=== PATIENT | female | born 1960 | race Two or more races ===

== ENCOUNTER 2016-10-29 23:40 | Emergency (ER) | payer SELFPAY ==
[2016-10-30] MEDS ORDERED: ASPIRIN 81 MG TABLET, CHEWABLE PO ONE (00:13)
[2016-10-30 00:46] LABS: ABSOLUTE BASOPHILS # (AUTO) 0.1 10^3/uL (0.0-0.2); ABSOLUTE EOSINOPHILS # (AUTO) 0.2 10^3/uL (0.0-0.6); ABSOLUTE MONOCYTES (AUTO) 0.6 10^3/uL (0.1-1.4); ABSOLUTE NEUT (AUTO) 5.4 10^3/uL (1.7-8.2); BASOPHILS % (AUTO) 0.6 % (0-2); EOSINOPHILS % (AUTO) 2.5 % (0-6); HEMATOCRIT 38.9 % (36.0-47.0); HGB HCT DIFFERENCE 0.1; LYMPHOCYTES % (AUTO) 31.7 % (13-45); MEAN CORPUSCULAR HEMOGLOBIN 29.4 pg (27.0-33.4); MEAN CORPUSCULAR HGB CONC 33.4 g/dL (32.0-36.0); MEAN CORPUSCULAR VOLUME 88 fl (80-97); MONOCYTES % (AUTO) 6.8 % (3-13); RED BLOOD COUNT 4.41 10^6/uL (3.72-5.28); RED CELL DISTRIBUTION WIDTH 12.3 % (11.5-14.0); SEGMENTED NEUTROPHILS % (AUTO) 58.4 % (42-78); WHITE BLOOD COUNT 9.3 10^3/uL (4.0-10.5)
[2016-10-30 00:57] LABS: ALANINE AMINOTRANSFERASE 22 U/L (9-52); ALBUMIN 3.8 g/dL (3.5-5.0); ALKALINE PHOSPHATASE 63 U/L (38-126); ANION GAP 8 (5-19); ASPARTATE AMINO TRANSFERASE 16 U/L (14-36); BILIRUBIN,DIRECT 0.1 mg/dL (0.0-0.4); BILIRUBIN,TOTAL 0.3 mg/dL (0.2-1.3); BLOOD UREA NITROGEN 16 mg/dL (7-20); CALCIUM 9.2 mg/dL (8.4-10.2); CARBON DIOXIDE 28 mmol/L (22-30); CHLORIDE 105 mmol/L (98-107); CREATINE KINASE 93 U/L (30-135); CREATININE RESULT 0.71 mg/dL (0.52-1.25); GLUCOSE 83 mg/dL (75-110); POTASSIUM 3.7 mmol/L (3.6-5.0); SODIUM 141.3 mmol/L (137-145); TOTAL PROTEIN 6.6 g/dL (6.3-8.2)
[2016-10-30 01:09] LABS: CREATINE KINASE MB 0.83 ng/mL (<4.55); TROPONIN I < 0.012 ng/mL
[2016-10-30] MEDS ORDERED: IPRATROPIUM/ALBUTEROL 0.5-2.5 MG/3 ML AMPUL NEB ONE ×2 (01:23)
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
--- NOTE | 2016-10-30 01:27 | RADIOLOGY REPORT (SQ) ---
EXAM DESCRIPTION: CHEST SINGLE VIEW COMPLETED DATE/TIME: 10/30/2016 1:15 am REASON FOR STUDY: chest pain COMPARISON: None. EXAM PARAMETERS: NUMBER OF VIEWS: One view. TECHNIQUE: Single frontal radiographic view of the chest acquired. RADIATION DOSE: NA LIMITATIONS: None. FINDINGS: LUNGS AND PLEURA: No consolidation, pneumothorax or pleural effusion. MEDIASTINUM AND HILAR STRUCTURES: No masses. Contour normal. HEART AND VASCULAR STRUCTURES: Heart normal in size. No overt vascular congestion. BONES: No acute findings. HARDWARE: None in the chest. IMPRESSION: No acute radiographic finding in the chest. TECHNICAL DOCUMENTATION: JOB ID: [id number]
[2016-10-30 02:30] VITALS: BP 108/66
--- NOTE | 2016-10-30 12:49 | EKG REPORT ---
SEVERITY:- NORMAL ECG - SINUS RHYTHM : Confirmed by: Cindy Leblanc MD 30-Oct-2016 12:49:22
== END 2016-10-30 02:38 | disposition home or self-care (01) ==
LOC: ER 23:40
DX: R07.1 Chest pain on breathing (principal); R05 Cough; R06.7 Sneezing; R06.02 Shortness of breath; R06.2 Wheezing; Y84.4 Aspiration of fluid as the cause of abnormal reaction of the patient, or of later complication, without mention of misadventure at the time of the procedure
CPT/HCPCS: 93005; 94640 ×2; 99285; 36415; 82553; 82550; 85025; 80053; 84484; 71010; 93010; J7620

== ENCOUNTER 2017-04-05 11:24 | Emergency (ER) | payer BC ==
[2017-04-05 11:32] VITALS: BP 120/73
[2017-04-05] MEDS ORDERED: ONDANSETRON 4 MG TAB.RAPDIS PO ONE (12:05)
[2017-04-05] MEDS ORDERED: KETOROLAC TROMETHAMINE 60 MG/2 ML SDV IM ONE (12:06)
--- NOTE | 2017-04-05 12:07 | ER Document Report ---
ED General - General Mode of Arrival: Ambulatory Information source: Patient TRAVEL OUTSIDE OF THE [place] IN LAST 30 DAYS: Yes - General Chief Complaint: Flu Symptoms Stated Complaint: BODY ACHES, NAUSEA Time Seen by Provider: 04/05/17 11:41 Notes: Patient is a 56 year old female presenting to the emergency department complaining of flu like symptoms. Patient complains of body aches, cough, congestion, sore throat, and nausea. Patient denies any difficulty breathing. (BRONSON ROMAN) - Related Data Allergies/Adverse Reactions: No Known Allergies Allergy (Unverified 10/30/16 00:04) Past Medical History - General Information source: Patient - Social History Smoking Status: Never Smoker Frequency of alcohol use: None Drug Abuse: None Family History: Reviewed & Not Pertinent Patient has suicidal ideation: No Patient has homicidal ideation: No Renal/ Medical History: Denies: Hx Peritoneal Dialysis Review of Systems - Review of Systems Constitutional: See HPI EENT: See HPI, Nose congestion, Throat pain Cardiovascular: No symptoms reported Respiratory: See HPI, Cough Gastrointestinal: See HPI, Nausea Genitourinary: No symptoms reported Female Genitourinary: No symptoms reported Musculoskeletal: No symptoms reported Skin: No symptoms reported Hematologic/Lymphatic: No symptoms reported Neurological/Psychological: No symptoms reported -: Yes All other systems reviewed and negative Physical Exam - General General appearance: Other - appears uncomfortable In distress: None - HEENT Head: Normocephalic, Atraumatic Eyes: Normal Conjunctiva: Normal Nasal: Other - congestion - Respiratory Respiratory status: No respiratory distress Chest status: Nontender Breath sounds: Normal Chest palpation: Normal - Cardiovascular Rhythm: Regular Heart sounds: Normal auscultation - Neurological Neuro grossly intact: Yes Cognition: Normal Orientation: AAOx4 [place] Coma Scale Eye Opening: Spontaneous [place] Coma Scale Verbal: Oriented [place] Coma Scale Motor: Obeys Commands [place] Coma Scale Total: 15 Speech: Normal - Psychological Associated symptoms: Normal affect, Normal mood - Skin Skin Temperature: Hot Skin Moisture: Dry Skin Color: Normal - Vital signs Vitals: Temp Pulse Resp BP Pulse Ox 100.0 F 98 18 120/73 97 04/05/17 11:32 04/05/17 11:32 04/05/17 11:32 04/05/17 11:32 04/05/17 11:32 Course - Re-evaluation Re-evalutation: 04/05/17 Patient with flu symptoms. Positive for influenza A. Patient will be discharged home with nausea medication, Toradol, and Tamiflu. She will be given a work note. Follow-up with PMD as needed. Return if any difficulty breathing, worsening symptoms, or further concerns. Stable for discharge. ( LINDSAY CHATMAN) - Vital Signs Vital signs: Temp Pulse Resp BP Pulse Ox 100.0 F 98 18 120/73 97 04/05/17 11:32 04/05/17 11:32 04/05/17 11:32 04/05/17 11:32 04/05/17 11:32 Discharge - Discharge Clinical Impression: Influenza A Condition: Stable Disposition: HOME, SELF-CARE Instructions: Influenza ([facility]) Prescriptions: Ondansetron [Zofran Odt 4 mg Tablet] 1 tab PO Q6HP PRN #15 tab.rapdis PRN Reason: For Nausea/Vomiting Ketorolac Tromethamine [Toradol 10 mg Tablet] 10 mg PO BIDP PRN #14 tablet PRN Reason: Oseltamivir Phosphate [Tamiflu 75 mg Capsule] 75 mg PO BID #10 capsule Forms: Return to Work Scribe Attestation: 04/05/17 13:28 I personally performed the services described in the documentation, reviewed and edited the documentation which was dictated to the scribe in my presence, and it accurately records my words and actions. (LINDSAY CHATMAN) Scribe Documentation - Scribe Written by Scrjulissae:: Mesfin Barraza, 04/05/2017 12:17 acting as scribe for :: Jalil
[2017-04-05] MEDS ORDERED: ACETAMINOPHEN 325 MG TABLET PO ONE (12:14)
[2017-04-05 12:31] LABS: A TYPE INFLUENZA AG POSITIVE (NEGATIVE); B INFLUENZA AG NEGATIVE (NEGATIVE)
== END 2017-04-05 12:50 | disposition home or self-care (01) ==
LOC: ER 11:24
DX: J11.1 Influenza due to unidentified influenza virus with other respiratory manifestations (principal); R11.0 Nausea; R05 Cough; R09.81 Nasal congestion
CPT/HCPCS: 99283; 96372; 87804; J1885; S0119

== ENCOUNTER 2017-08-02 12:13 | Emergency (ER) | payer BC ==
[2017-08-02] MEDS ORDERED: ASPIRIN 81 MG TABLET, CHEWABLE PO ONE (12:25)
--- NOTE | 2017-08-02 12:31 | ER Document Report ---
ED Cardiac - General Chief Complaint: Chest Pain Stated Complaint: LEFT SIDE PAIN Time Seen by Provider: 08/02/17 12:31 Notes: 56-year-old female patient to the emergency department with a 1-2 day history of chest pain. Hurts when she moves her left arm. Hurts when she takes a deep breath. No shortness of breath. No history of hypertension, diabetes, obesity or other significant risk factors. Does not smoke. Does not drink. Does have a family history of heart disease. Mother had a heart attack at the age of 57 and . Father has history of heart history of coronary artery disease and open heart surgery. Denies any other symptoms at this time. He denies any pain in her legs. No difficulty breathing. No long trips or travel. 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 TRAVEL OUTSIDE OF THE [place] IN LAST 30 DAYS: No - HPI Patient complains to provider of: Chest pain Use of: denies: Alcohol, Amphetamines, Bath salts, Caffeine, Cocaine, Decongestants, Other Chest pain location: Substernal. No: Back Quality of pain: Constant Severity now: Moderate Severity at worst: Moderate Pain level currently: 3 Chest pain precipitating factors: Physical Exertion Cardiac risk factors: + Family history Positive cardiac history: No Associated symptoms: None Exacerbated by: Torso movement Relieved by: Rest - Related Data Allergies/Adverse Reactions: No Known Allergies Allergy (Unverified 10/30/16 00:04) Past Medical History - General Information source: Patient - Social History Smoking Status: Never Smoker Cigarette use (# per day): No Frequency of alcohol use: None Drug Abuse: None Lives with: Family Family History: Reviewed & Not Pertinent - Medical History Medical History: Negative - Past Medical History Cardiac Medical History: Reports: None Renal/ Medical History: Denies: Hx Peritoneal Dialysis Past Surgical History: Reports: Hx Section, Hx Kidney (Renal Surgery) Other: Lithotripsy, ovarian cyst Review of Systems - Review of Systems Constitutional: No symptoms reported EENT: No symptoms reported Cardiovascular: See HPI, Chest pain. denies: Palpitations, Heart racing, Orthopnea, Dyspnea Respiratory: No symptoms reported Gastrointestinal: No symptoms reported Genitourinary: No symptoms reported Female Genitourinary: No symptoms reported Musculoskeletal: No symptoms reported Skin: No symptoms reported Hematologic/Lymphatic: No symptoms reported Neurological/Psychological: No symptoms reported Physical Exam - Vital signs Vitals: Pulse Ox 97 08/02/17 12:25 Interpretation: Normal - General General appearance: Appears well, Alert - HEENT Head: Normocephalic, Atraumatic Eyes: Normal Pupils: PERRL - Respiratory Respiratory status: No respiratory distress Chest status: Nontender Breath sounds: Normal Chest palpation: Normal - Cardiovascular Rhythm: Regular Heart sounds: Normal auscultation Murmur: No Notes: Palpable reproducible chest wall pain on the left side. Exacerbated with movement of the left arm and shoulder. Significantly increased her pain when ranging her shoulder. - Abdominal Inspection: Normal Distension: No distension Bowel sounds: Normal Tenderness: Nontender Organomegaly: No organomegaly - Back Back: Normal, Nontender - Extremities General upper extremity: Normal inspection, Nontender, Normal color, Normal ROM , Normal temperature General lower extremity: Normal inspection, Nontender, Normal color, Normal ROM , Normal temperature, Normal weight bearing. No: Edema, Guanaco's sign - Neurological Neuro grossly intact: Yes Cognition: Normal Orientation: AAOx4 [place] Coma Scale Eye Opening: Spontaneous [place] Coma Scale Verbal: Oriented [place] Coma Scale Motor: Obeys Commands [place] Coma Scale Total: 15 Speech: Normal Motor strength normal: LUE, RUE, LLE, RLE Sensory: Normal - Psychological Associated symptoms: Normal affect, Normal mood - Skin Skin Temperature: Warm Skin Moisture: Dry Skin Color: Normal Course - Re-evaluation Re-evalutation: 08/02/17 12:56 This is a well-appearing 56-year-old female in no acute distress with reproducible chest wall pain which is exacerbated by palpation movement of her left arm and range of motion of her left arm. EKG unremarkable. Will get basic labs chest x-ray, some Toradol and aspirin reassess. 08/02/17 14:23 Pain is almost completely gone at this time. EKG and labs are verbal. Patient did have a stress test within the last couple of years according to her reports. We will give her follow-up information for a outpatient doctor. 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 I think this patient has some chest wall inflammation which is clearly reproducible and exacerbated by movement of her arm and was relieved with Toradol. Although this is not 100% indicative of a noncardiac event it does lend credence to this not being a initial cardiac pathology. Patient has a heart score of 1. Nevertheless, strict instructions will be given to the patient with regards to chest pain and the need for close follow-up. Patient verbalized understanding of these instructions and will be discharged at this time 08/02/17 14:25 Laboratory 08/02/17 08/02/17 08/02/17 12:35 12:35 12:35 WBC 8.0 RBC 4.64 Hgb 13.1 Hct 40.3 MCV 87 MCH 28.3 MCHC 32.6 RDW 13.1 Plt Count 281 Seg Neutrophils % 61.0 Lymphocytes % 26.0 Monocytes % 6.6 Eosinophils % 5.7 Basophils % 0.7 Absolute Neutrophils 4.9 Absolute Lymphocytes 2.1 Absolute Monocytes 0.5 Absolute Eosinophils 0.5 Absolute Basophils 0.1 Sodium 143.8 Potassium 4.6 Chloride 102 Carbon Dioxide 30 Anion Gap 12 BUN 19 Creatinine 0.60 Est GFR ( Amer) > 60 Est GFR (Non-Af Amer) > 60 Glucose 102 Calcium 9.6 Total Bilirubin 0.2 Direct Bilirubin 0.2 Neonat Total Bilirubin Not Reportable Neonat Direct Bilirubin Not Reportable Neonat Indirect Bili Not Reportable AST 19 ALT 26 Alkaline Phosphatase 61 Creatine Kinase 52 CK-MB (CK-2) 0.44 Troponin I < 0.012 Total Protein 6.5 Albumin 3.9 Chest X-Ray 08/02/17 12:25 IMPRESSION: NO ACUTE RADIOGRAPHIC FINDING IN THE CHEST. - Vital Signs Vital signs: Temp Pulse Resp BP Pulse Ox 17 119/88 H 98 08/02/17 13:01 08/02/17 13:01 08/02/17 13:01 - Laboratory Result Diagrams: 08/02/17 12:35 08/02/17 12:35 - EKG Interpretation by [place] EKG shows normal: Sinus rhythm, [place], Intervals, QRS Complexes, ST-T Waves Discharge - Discharge Clinical Impression: Anterior chest wall pain Condition: Good Disposition: HOME, SELF-CARE Instructions: Anti-Inflammatory Medication ([facility]), Chest Pain of Unclear Cause ( [facility]), Chest Wall Pain ([facility]) Prescriptions: Ibuprofen [Motrin 800 mg Tablet] 800 mg PO Q8H PRN 5 Days #15 tab PRN Reason: Referrals: JUDI JONES MD [ACTIVE STAFF] - Follow up in 3-5 days ROMAN DAIGLE MD [ACTIVE STAFF] - Follow up in 1 month
[2017-08-02] MEDS ORDERED: KETOROLAC TROMETHAMINE INJ/PF 30 MG/1 ML SDV IV ONE (12:45)
[2017-08-02 12:52] LABS: ABSOLUTE BASOPHILS # (AUTO) 0.1 10^3/uL (0.0-0.2); ABSOLUTE EOSINOPHILS # (AUTO) 0.5 10^3/uL (0.0-0.6); ABSOLUTE LYMPHOCYTES (AUTO) 2.1 10^3/uL (0.5-4.7); ABSOLUTE MONOCYTES (AUTO) 0.5 10^3/uL (0.1-1.4); ABSOLUTE NEUT (AUTO) 4.9 10^3/uL (1.7-8.2); BASOPHILS % (AUTO) 0.7 % (0-2); EOSINOPHILS % (AUTO) 5.7 % (0-6); HEMATOCRIT 40.3 % (36.0-47.0); HEMOGLOBIN 13.1 g/dL (12.0-15.5); MEAN CORPUSCULAR HEMOGLOBIN 28.3 pg (27.0-33.4); MEAN CORPUSCULAR HGB CONC 32.6 g/dL (32.0-36.0); MEAN CORPUSCULAR VOLUME 87 fl (80-97); MONOCYTES % (AUTO) 6.6 % (3-13); PLATELET COUNT 281 10^3/uL (150-450); RED BLOOD COUNT 4.64 10^6/uL (3.72-5.28); RED CELL DISTRIBUTION WIDTH 13.1 % (11.5-14.0); TOTAL CELLS COUNTED % (AUTO) 100 %
--- NOTE | 2017-08-02 12:53 | EKG REPORT ---
SEVERITY:- BORDERLINE ECG - SINUS RHYTHM BORDERLINE T ABNORMALITIES, ANT-LAT LEADS : Confirmed by: Charlie Blue MD 02-Aug-2017 12:52:49
[2017-08-02 13:13] LABS: ALANINE AMINOTRANSFERASE 26 U/L (9-52); ALBUMIN 3.9 g/dL (3.5-5.0); ALKALINE PHOSPHATASE 61 U/L (38-126); ANION GAP 12 (5-19); ASPARTATE AMINO TRANSFERASE 19 U/L (14-36); BILIRUBIN,DIRECT 0.2 mg/dL (0.0-0.4); BILIRUBIN,TOTAL 0.2 mg/dL (0.2-1.3); BLOOD UREA NITROGEN 19 mg/dL (7-20); CALCIUM 9.6 mg/dL (8.4-10.2); CARBON DIOXIDE 30 mmol/L (22-30); CHLORIDE 102 mmol/L (98-107); CREATINE KINASE 52 U/L (30-135); GLUCOSE 102 mg/dL (75-110); POTASSIUM 4.6 mmol/L (3.6-5.0); SODIUM 143.8 mmol/L (137-145); TOTAL PROTEIN 6.5 g/dL (6.3-8.2)
[2017-08-02 13:21] LABS: CREATINE KINASE MB 0.44 ng/mL (<4.55)
[2017-08-02 13:28] LABS: TROPONIN I < 0.012 ng/mL
--- NOTE | 2017-08-02 13:35 | RADIOLOGY REPORT (SQ) ---
EXAM DESCRIPTION: CHEST SINGLE VIEW COMPLETED DATE/TIME: 08/02/2017 1:13 pm REASON FOR STUDY: cp COMPARISON: None. EXAM PARAMETERS: NUMBER OF VIEWS: One view. TECHNIQUE: Single frontal radiographic view of the chest acquired. RADIATION DOSE: NA LIMITATIONS: None. FINDINGS: LUNGS AND PLEURA: No opacities, masses or pneumothorax. No pleural effusion. MEDIASTINUM AND HILAR STRUCTURES: No masses. Contour normal. HEART AND VASCULAR STRUCTURES: Heart normal in size. Normal vasculature. BONES: No acute findings. HARDWARE: None in the chest. OTHER: No other significant finding. IMPRESSION: NO ACUTE RADIOGRAPHIC FINDING IN THE CHEST. TECHNICAL DOCUMENTATION: JOB ID: [id number] [employer]- All Rights Reserved Reading location - IP/workstation name: [email or web address]
[2017-08-02 14:45] VITALS: BP 102/67
== END 2017-08-02 14:49 | disposition home or self-care (01) ==
LOC: ER 12:13
DX: R07.89 Other chest pain (principal)
CPT/HCPCS: 93005; 99284; 96374; 36415; 82553; 82550; 85025; 80053; 84484; 71045; 93010; J1885

== ENCOUNTER 2017-12-06 17:38 | Emergency (ER) | payer OTHER, BC ==
[2017-12-06] MEDS ORDERED: BACLOFEN 20 MG TABLET PO ONE (18:18)
[2017-12-06] MEDS ORDERED: KETOROLAC TROMETHAMINE 60 MG/2 ML SDV IM ONE (18:18)
--- NOTE | 2017-12-06 18:21 | ER Document Report ---
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 She was lifting boxes around 1230, the pain was progressively increased to the point that by the time she came to the ER intensity of the pain is severe. Nonradiating not associated with any numbness tingling sensation or weakness over the lower extremity. Onset: Sudden Duration: Prior to arrival Severity: Moderate to severe Quality: Sharp Context: Lifting boxes Exacerbating factor and relieving factors: Change of position REVIEW OF SYSTEMS: CONSTITUTIONAL : Denies fever, chills, or sweats. Denies recent illness. EENT: Denies eye, ear, throat, or mouth pain or symptoms. Denies nasal or sinus congestion or discharge. Denies throat, tongue, or mouth swelling or difficulty swallowing. CARDIOVASCULAR: Denies chest pain. Denies palpitations or racing or irregular heart beat. Denies ankle edema. RESPIRATORY: Denies cough, cold, or chest congestion. Denies shortness of breath, difficulty breathing, or wheezing. GASTROINTESTINAL: Denies distention. Denies nausea, vomiting, or diarrhea. Denies blood in vomitus, stools, or per rectum. Denies black, tarry stools. Denies constipation. GENITOURINARY: Denies difficulty urinating, painful urination, burning, frequency, blood in urine, or discharge. FEMALE GENITOURINARY: Denies vaginal bleeding, heavy or abnormal periods, irregular periods. Denies vaginal discharge or odor. MUSCULOSKELETAL: Denies back or neck pain or stiffness. Denies joint pain or swelling. SKIN: Denies rash, lesions or sores. HEMATOLOGIC : Denies easy bruising or bleeding. LYMPHATIC: Denies swollen, enlarged glands. NEUROLOGICAL: Denies confusion or altered mental status. Denies passing out or loss of consciousness. Denies dizziness or lightheadedness. Denies headache. Denies weakness or paralysis or loss of use of either side. Denies problems with gait or speech. Denies sensory loss, numbness, or tingling. Denies seizures. PSYCHIATRIC: Denies anxiety or stress. Denies depression, suicidal ideation, or homicidal ideation. ALL OTHER SYSTEMS REVIEWED AND NEGATIVE. PHYSICAL EXAMINATION: GENERAL: Well-appearing, well-nourished and in no acute distress. HEAD: Atraumatic, normocephalic. EYES: Pupils equal round and reactive to light, extraocular movements intact, conjunctiva are normal. ENT: Nares patent, oropharynx clear without exudates. Moist mucous membranes. NECK: Normal range of motion, supple without lymphadenopathy LUNGS: Breath sounds clear to auscultation bilaterally and equal. No wheezes rales or rhonchi. HEART: Regular rate and rhythm without murmurs ABDOMEN: Soft, nontender, nondistended abdomen. No guarding, no rebound. No masses appreciated. Examination of genitals-deferred Musculoskeletal: Normal range of motion, no pitting or edema. No cyanosis. Examination of the lumbar spine-sharp tenderness noted over L4-L5 region. With paraspinal muscular tenderness. Neurovascular function distally within normal limit. NEUROLOGICAL: Cranial nerves grossly intact. Normal speech, normal gait. Normal sensory, motor exams PSYCH: Normal mood, normal affect. SKIN: Warm, Dry, normal turgor, no rashes or lesions noted. Dictation was performed using [employer] | [employer] voice recognition software TRAVEL OUTSIDE OF THE [place] IN LAST 30 DAYS: No - Related Data Allergies/Adverse Reactions: No Known Allergies Allergy (Unverified 10/30/16 00:04) Past Medical History - Social History Smoking Status: Never Smoker Chew tobacco use (# tins/day): No Frequency of alcohol use: None Drug Abuse: None Lives with: Family Family History: Reviewed & Not Pertinent Patient has suicidal ideation: No Patient has homicidal ideation: No Renal/ Medical History: Denies: Hx Peritoneal Dialysis Past Surgical History: Reports: Hx Section, Hx Kidney (Renal Surgery) Review of Systems - Review of Systems Notes: Dictated Physical Exam - Vital signs Vitals: Temp Pulse Resp BP Pulse Ox 98.0 F 64 16 116/66 99 12/06/17 17:42 12/06/17 17:42 12/06/17 17:42 12/06/17 17:42 12/06/17 17:42 - Notes Notes: Dictated Course - Vital Signs Vital signs: Temp Pulse Resp BP Pulse Ox 98.0 F 64 16 116/66 99 12/06/17 17:42 12/06/17 17:42 12/06/17 17:42 12/06/17 17:42 12/06/17 17:42 - Diagnostic Test Radiology reviewed: Reports reviewed - Lumbar spondylitis Discharge - Discharge Clinical Impression: Lumbar spondylosis Back pain Qualifiers: Back pain location: low back pain Chronicity: acute Back pain laterality: midline Sciatica presence: without sciatica Qualified Code(s): M54.5 - Low back pain Condition: Fair Disposition: HOME, SELF-CARE Instructions: Ice Packs ([facility]), Low Back Pain ([facility]) Prescriptions: Baclofen [Baclofen 20 Mg Tablet] 20 mg PO TID #30 tablet Naproxen [Naprosyn] 500 mg PO BID #30 tablet Referrals: FRANSISCA HERNANDES PA-C [NO LOCAL MD] - Follow up as needed"
--- NOTE | 2017-12-06 18:51 | RADIOLOGY REPORT (SQ) ---
EXAM DESCRIPTION: L SPINE WHOLE COMPLETED DATE/TIME: 12/06/2017 6:35 pm REASON FOR STUDY: Back pain COMPARISON: None. NUMBER OF VIEWS: Five views including obliques. TECHNIQUE: AP, lateral, oblique, and sacral radiographic images acquired of the lumbar spine. LIMITATIONS: None. FINDINGS: MINERALIZATION: Normal. SEGMENTATION: Normal. No transitional anatomy. ALIGNMENT: Normal. VERTEBRAE: Maintained height. No fracture or worrisome bone lesion. DISCS: Multilevel disc space narrowing with osteophytes. POSTERIOR ELEMENTS: Pedicles and facets are intact. No pars defect or posterior arch defects. Facet arthropathy is present. HARDWARE: None in the spine. PARASPINAL SOFT TISSUES: Normal. PELVIS: Intact as visualized. No fractures or worrisome bone lesions. SI joints intact. OTHER: No other significant finding. IMPRESSION: SPONDYLOSIS WITHOUT BONE LESION OR FRACTURE. TECHNICAL DOCUMENTATION: JOB ID: [id number] [place]-72 2010 [employer]- All Rights Reserved Reading location - IP/workstation name: [email or web address]
[2017-12-06 19:39] VITALS: BP 111/66
== END 2017-12-06 19:40 | disposition home or self-care (01) ==
LOC: ER 17:38
DX: M48.36 Traumatic spondylopathy, lumbar region (principal); M54.5 Low back pain; M54.9 Dorsalgia, unspecified; R20.0 Anesthesia of skin; X50.0XXA Overexertion from strenuous movement or load, initial encounter
CPT/HCPCS: 99283; 96372; 72110; J1885; J3490

== ENCOUNTER 2018-01-02 13:47 | Emergency (ER) | payer BC ==
[2018-01-02] MEDS ORDERED: ONDANSETRON HCL INJ/PF 4 MG/2 ML SDV IV ONE (14:46)
[2018-01-02] MEDS ORDERED: KETOROLAC TROMETHAMINE INJ/PF 30 MG/1 ML SDV IV ONE (14:46)
[2018-01-02] MEDS ORDERED: NORMAL SALINE 1000 ML 1,000 ML IV ONE (14:47)
--- NOTE | 2018-01-02 14:48 | ER Document Report ---
ED GI/ - General Chief Complaint: Abdominal Pain Stated Complaint: ABDOMINAL PAIN Time Seen by Provider: 01/02/18 14:45 Mode of Arrival: Ambulatory Information source: Patient Notes: Chief complaint: abdominal pain: History of complain:( obtained from----patient) 57 years old female presents today with 2-day history of lower abdominal cramps associated with brown E loose stools x4-6. Nauseous no vomiting. No fever chills or other constitutional symptoms. Denies any dysuria frequency urgency. Onset: Gradual Duration: 2 days Severity: Mild to moderate Quality: Crampy Context: Unknown Exacerbating factor and relieving factors: Unknown REVIEW OF SYSTEMS: CONSTITUTIONAL : Denies fever, chills, or sweats. Denies recent illness. EENT: Denies eye, ear, throat, or mouth pain or symptoms. Denies nasal or sinus congestion or discharge. Denies throat, tongue, or mouth swelling or difficulty swallowing. CARDIOVASCULAR: Denies chest pain. Denies palpitations or racing or irregular heart beat. Denies ankle edema. RESPIRATORY: Denies cough, cold, or chest congestion. Denies shortness of breath, difficulty breathing, or wheezing. GASTROINTESTINAL: Denies distention. Denies nausea, vomiting, or diarrhea. Denies blood in vomitus, stools, or per rectum. Denies black, tarry stools. Denies constipation. GENITOURINARY: Denies difficulty urinating, painful urination, burning, frequency, blood in urine, or discharge. FEMALE GENITOURINARY: Denies vaginal bleeding, heavy or abnormal periods, irregular periods. Denies vaginal discharge or odor. MUSCULOSKELETAL: Denies back or neck pain or stiffness. Denies joint pain or swelling. SKIN: Denies rash, lesions or sores. HEMATOLOGIC : Denies easy bruising or bleeding. LYMPHATIC: Denies swollen, enlarged glands. NEUROLOGICAL: Denies confusion or altered mental status. Denies passing out or loss of consciousness. Denies dizziness or lightheadedness. Denies headache. Denies weakness or paralysis or loss of use of either side. Denies problems with gait or speech. Denies sensory loss, numbness, or tingling. Denies seizures. PSYCHIATRIC: Denies anxiety or stress. Denies depression, suicidal ideation, or homicidal ideation. ALL OTHER SYSTEMS REVIEWED AND NEGATIVE. PHYSICAL EXAMINATION: GENERAL: Well-appearing, well-nourished and in no acute distress. HEAD: Atraumatic, normocephalic. EYES: Pupils equal round and reactive to light, extraocular movements intact, conjunctiva are normal. ENT: Nares patent, oropharynx clear without exudates. Moist mucous membranes. NECK: Normal range of motion, supple without lymphadenopathy LUNGS: Breath sounds clear to auscultation bilaterally and equal. No wheezes rales or rhonchi. HEART: Regular rate and rhythm without murmurs ABDOMEN: Soft, nontender, nondistended abdomen. No guarding, no rebound. No masses appreciated. Female : deferred Musculoskeletal: Normal range of motion, no pitting or edema. No cyanosis. NEUROLOGICAL: Cranial nerves grossly intact. Normal speech, normal gait. Normal sensory, motor exams PSYCH: Normal mood, normal affect. SKIN: Warm, Dry, normal turgor, no rashes or lesions noted. Dictation was performed using [email or web address] voice recognition software TRAVEL OUTSIDE OF THE [place] IN LAST 30 DAYS: No - HPI Notes: 01/02/18 14:48 Dictated - Related Data Allergies/Adverse Reactions: No Known Allergies Allergy (Verified 01/02/18 16:56) Past Medical History - Social History Smoking Status: Never Smoker Frequency of alcohol use: None Drug Abuse: None Lives with: Family Family History: Reviewed & Not Pertinent Patient has suicidal ideation: No Patient has homicidal ideation: No Renal/ Medical History: Reports: Hx Kidney Stones. Denies: Hx Peritoneal Dialysis Past Surgical History: Reports: Hx Section, Hx Kidney (Renal Surgery) Review of Systems - Review of Systems Notes: Dictated Physical Exam - Vital signs Vitals: Temp Pulse Resp BP Pulse Ox 98.6 F 75 14 103/71 99 01/02/18 14:15 01/02/18 14:15 01/02/18 14:15 01/02/18 14:15 01/02/18 14:15 - Notes Notes: Dictated Course - Vital Signs Vital signs: Temp Pulse Resp BP Pulse Ox 98.6 F 75 14 103/71 99 01/02/18 14:15 01/02/18 14:15 01/02/18 14:15 01/02/18 14:15 01/02/18 14:15 - Laboratory Result Diagrams: 01/02/18 14:50 01/02/18 14:50 Laboratory results interpreted by me: 01/02/18 01/02/18 14:50 14:50 Glucose 74 L Lipase 338.6 H Ur Leukocyte Esterase TRACE H - Diagnostic Test Radiology reviewed: Image reviewed - KUB showed large amount of fecal material, Reports reviewed Discharge - Discharge Clinical Impression: Constipation by delayed colonic transit Abdominal pain Qualifiers: Abdominal location: generalized Qualified Code(s): R10.84 - Generalized abdominal pain Condition: Fair Disposition: HOME, SELF-CARE Instructions: Abdominal Pain ([facility]), Constipation ([facility]) Prescriptions: Ketorolac Tromethamine [Toradol 10 mg Tablet] 10 mg PO Q6HP PRN #14 tablet PRN Reason: Dicyclomine HCl [Bentyl 10 mg Capsule] 1 cap PO TID #30 cap Lactulose 20 gm PO BID #120 ml
--- NOTE | 2018-01-02 15:04 | RADIOLOGY REPORT (SQ) ---
EXAM DESCRIPTION: KUB/ABDOMEN (SINGLE VIEW) COMPLETED DATE/TIME: 01/02/2018 2:57 pm REASON FOR STUDY: Abdominal pain COMPARISON: None. NUMBER OF VIEWS: One view. TECHNIQUE: Supine radiographic image of the abdomen acquired. LIMITATIONS: None. FINDINGS: BOWEL GAS PATTERN: Normal bowel gas pattern. No dilated loops. CALCIFICATIONS: No suspicious calcifications. SOFT TISSUES: No gross mass or suggestion of organomegaly. HARDWARE: None in the abdomen. BONES: No acute fracture. No worrisome bone lesions. OTHER: No other significant finding. IMPRESSION: NO RADIOGRAPHIC EVIDENCE FOR ACUTE ABDOMINAL DISEASE. TECHNICAL DOCUMENTATION: JOB ID: [id number] [employer]- All Rights Reserved Reading location - IP/workstation name: [email or web address]
[2018-01-02 15:36] LABS: ABSOLUTE EOSINOPHILS # (AUTO) 0.2 10^3/uL (0.0-0.6); ABSOLUTE MONOCYTES (AUTO) 0.5 10^3/uL (0.1-1.4); ABSOLUTE NEUT (AUTO) 6.4 10^3/uL (1.7-8.2); BASOPHILS % (AUTO) 0.4 % (0-2); EOSINOPHILS % (AUTO) 2.1 % (0-6); HEMATOCRIT 42.3 % (36.0-47.0); HEMOGLOBIN 13.8 g/dL (12.0-15.5); LYMPHOCYTES % (AUTO) 22.3 % (13-45); MEAN CORPUSCULAR HEMOGLOBIN 28.8 pg (27.0-33.4); MEAN CORPUSCULAR HGB CONC 32.6 g/dL (32.0-36.0); MEAN CORPUSCULAR VOLUME 88 fl (80-97); MONOCYTES % (AUTO) 5.3 % (3-13); PLATELET COUNT 285 10^3/uL (150-450); RED CELL DISTRIBUTION WIDTH 12.9 % (11.5-14.0); SEGMENTED NEUTROPHILS % (AUTO) 69.9 % (42-78); TOTAL CELLS COUNTED % (AUTO) 100 %; WHITE BLOOD COUNT 9.1 10^3/uL (4.0-10.5)
[2018-01-02 15:39] LABS: APPEARANCE,URINE CLEAR; BILIRUBIN,URINE NEGATIVE (NEGATIVE); COLOR,URINE YELLOW; GLUCOSE, URINE NEGATIVE (NEGATIVE); KETONES,URINE NEGATIVE (NEGATIVE); LEUKOCYTE ESTERASE,URINE TRACE (NEGATIVE); NITRITE,URINE NEGATIVE (NEGATIVE); PROTEIN,URINE NEGATIVE (NEGATIVE); URINE SPECIFIC GRAVITY 1.009; UROBILINOGEN,URINE NEGATIVE mg/dL (<2.0)
[2018-01-02 15:54] LABS: ALANINE AMINOTRANSFERASE 22 U/L (9-52); ALBUMIN 4.3 g/dL (3.5-5.0); ALKALINE PHOSPHATASE 69 U/L (38-126); ANION GAP 10 (5-19); ASPARTATE AMINO TRANSFERASE 24 U/L (14-36); BILIRUBIN,DIRECT 0.1 mg/dL (0.0-0.4); BILIRUBIN,TOTAL 0.3 mg/dL (0.2-1.3); BLOOD UREA NITROGEN 16 mg/dL (7-20); CALCIUM 9.8 mg/dL (8.4-10.2); CARBON DIOXIDE 30 mmol/L (22-30); CHLORIDE 101 mmol/L (98-107); GLUCOSE 74 mg/dL (75-110); LIPASE 338.6 U/L (23-300); POTASSIUM 4.4 mmol/L (3.6-5.0); SODIUM 140.7 mmol/L (137-145); TOTAL PROTEIN 7.6 g/dL (6.3-8.2)
[2018-01-02 17:38] VITALS: BP 127/69
== END 2018-01-02 17:45 | disposition home or self-care (01) ==
LOC: ER 13:47
DX: K59.01 Slow transit constipation (principal); R10.84 Generalized abdominal pain; R11.0 Nausea
CPT/HCPCS: 99284; 96361; 96374; 96375; 36415; 83690; 85025; 80053; 81001; 74018; J1885; J2405

== ENCOUNTER → 2018-03-31 | Outpatient (CLI) | payer BC ==
[2018-03-31 10:17] LABS: ABSOLUTE EOSINOPHILS # (AUTO) 0.3 10^3/uL (0.0-0.6); ABSOLUTE LYMPHOCYTES (AUTO) 2.1 10^3/uL (0.5-4.7); ABSOLUTE MONOCYTES (AUTO) 0.4 10^3/uL (0.1-1.4); ABSOLUTE NEUT (AUTO) 3.9 10^3/uL (1.7-8.2); BASOPHILS % (AUTO) 0.7 % (0-2); EOSINOPHILS % (AUTO) 4.3 % (0-6); HEMATOCRIT 39.9 % (36.0-47.0); LYMPHOCYTES % (AUTO) 30.8 % (13-45); MEAN CORPUSCULAR HEMOGLOBIN 28.4 pg (27.0-33.4); MEAN CORPUSCULAR HGB CONC 32.5 g/dL (32.0-36.0); MEAN CORPUSCULAR VOLUME 87 fl (80-97); MONOCYTES % (AUTO) 6.1 % (3-13); PLATELET COUNT 280 10^3/uL (150-450); RED BLOOD COUNT 4.57 10^6/uL (3.72-5.28); RED CELL DISTRIBUTION WIDTH 12.5 % (11.5-14.0); SEGMENTED NEUTROPHILS % (AUTO) 58.1 % (42-78); TOTAL CELLS COUNTED % (AUTO) 100 %; WHITE BLOOD COUNT 6.7 10^3/uL (4.0-10.5)
[2018-03-31 10:36] LABS: ALANINE AMINOTRANSFERASE 17 U/L (9-52); ALBUMIN 3.8 g/dL (3.5-5.0); ALKALINE PHOSPHATASE 68 U/L (38-126); ANION GAP 7 (5-19); ASPARTATE AMINO TRANSFERASE 18 U/L (14-36); BILIRUBIN,DIRECT 0.2 mg/dL (0.0-0.4); BILIRUBIN,TOTAL 0.3 mg/dL (0.2-1.3); BLOOD UREA NITROGEN 13 mg/dL (7-20); CALCIUM 9.3 mg/dL (8.4-10.2); CARBON DIOXIDE 30 mmol/L (22-30); CHLORIDE 105 mmol/L (98-107); GLUCOSE 91 mg/dL (75-110); POTASSIUM 4.5 mmol/L (3.6-5.0); SODIUM 141.8 mmol/L (137-145); TOTAL PROTEIN 6.6 g/dL (6.3-8.2)
== END ==
LOC: OD 09:42
PROVIDERS: ATTEND Family Medicine Geriatric Medicine
DX: I51.9 Heart disease, unspecified (principal); E53.9 Vitamin B deficiency, unspecified; Z79.899 Other long term (current) drug therapy
CPT/HCPCS: 36415; 80053; 82607; 85025

== ENCOUNTER → 2018-04-22 | Outpatient (CLI) | payer BC ==
--- NOTE | 2018-04-22 14:10 | RADIOLOGY REPORT (SQ) ---
EXAM DESCRIPTION: ELBOW RIGHT >2 VIEWS COMPLETED DATE/TIME: 04/22/2018 1:28 pm REASON FOR STUDY: PAIN IN RIGHT ELBOW (M25.521) G47.33 OBSTRUCTIVE SLEEP APNEA (ADULT) (PEDIATRIC) E53.8 DEFICIENCY OF OTHER SPECIFIED B GROUP VITAMINS M25.521 PAIN IN RIGHT ELBOW COMPARISON: None. NUMBER OF VIEWS: Four view. TECHNIQUE: AP, lateral, and both oblique radiographic images acquired of the right elbow. LIMITATIONS: None. FINDINGS: MINERALIZATION: Normal. BONES: No acute fracture or dislocation. No worrisome bone lesions. No significant osteophytes. JOINT: No effusions. SOFT TISSUES: No soft tissue swelling. No foreign body. OTHER: No other significant finding. IMPRESSION: NEGATIVE STUDY OF THE RIGHT ELBOW. NO EXPLANATION FOR PAIN. TECHNICAL DOCUMENTATION: JOB ID: [id number] [employer]- All Rights Reserved Reading location - IP/workstation name: [email or web address]
== END ==
LOC: OD 12:52
PROVIDERS: ATTEND Family Medicine Geriatric Medicine
DX: M25.521 Pain in right elbow (principal); G47.33 Obstructive sleep apnea (adult) (pediatric); E53.8 Deficiency of other specified B group vitamins; Z79.899 Other long term (current) drug therapy
CPT/HCPCS: 36415; 84550; 86038; 86225; 86430

== ENCOUNTER 2018-05-30 08:42 | Emergency (ER) | payer BC ==
[2018-05-30 09:31] LABS: HEMATOCRIT 42.4 % (36.0-47.0); HEMOGLOBIN 13.9 g/dL (12.0-15.5); MEAN CORPUSCULAR HEMOGLOBIN 28.8 pg (27.0-33.4); MEAN CORPUSCULAR HGB CONC 32.7 g/dL (32.0-36.0); MEAN CORPUSCULAR VOLUME 88 fl (80-97); PLATELET COUNT 268 10^3/uL (150-450); RED BLOOD COUNT 4.82 10^6/uL (3.72-5.28); RED CELL DISTRIBUTION WIDTH 13.1 % (11.5-14.0); WHITE BLOOD COUNT 15.2 10^3/uL (4.0-10.5)
[2018-05-30 09:40] LABS: ALANINE AMINOTRANSFERASE 8 U/L (9-52); ALBUMIN 4.6 g/dL (3.5-5.0); ALKALINE PHOSPHATASE 65 U/L (38-126); ANION GAP 7 (5-19); ASPARTATE AMINO TRANSFERASE 24 U/L (14-36); BILIRUBIN,DIRECT 0.1 mg/dL (0.0-0.4); BILIRUBIN,TOTAL 0.3 mg/dL (0.2-1.3); BLOOD UREA NITROGEN 16 mg/dL (7-20); CALCIUM 9.5 mg/dL (8.4-10.2); CARBON DIOXIDE 31 mmol/L (22-30); CHLORIDE 106 mmol/L (98-107); GLUCOSE 95 mg/dL (75-110); SODIUM 143.9 mmol/L (137-145); TOTAL PROTEIN 7.5 g/dL (6.3-8.2)
[2018-05-30 10:00] LABS: ABSOLUTE LYMPHOCYTES# (MANUAL) 0.6 10^3/uL (0.5-4.7); ABSOLUTE MONOCYTES # (MANUAL) 0.9 10^3/uL (0.1-1.4); ABSOLUTE NEUTROPHILS# (MANUAL) 13.7 10^3/uL (1.7-8.2); BAND NEUTROPHILS % (MANUAL) 3 % (3-5); BASOPHILS % (MANUAL) 0 % (0-2); EOSINOPHILS % (MANUAL) 0 % (0-6); LYMPHOCYTES % (MANUAL) 4 % (13-45); MONOCYTES % (MANUAL) 6 % (3-13); SEGMENTED NEUTROPHILS % (MAN) 87 % (42-78); TOTAL CELLS COUNTED 100
[2018-05-30 10:01] LABS: HYPOCHROMASIA SLIGHT; OVALOCYTES SLIGHT; PLATELET COMMENT ADEQUATE; POIKILOCYTOSIS SLIGHT; TOXIC GRANULATION 1+
[2018-05-30] MEDS ORDERED: NORMAL SALINE 1000 ML 1,000 ML IV ONE (10:33)
[2018-05-30] MEDS ORDERED: ONDANSETRON HCL INJ/PF 4 MG/2 ML SDV IV ONE (10:33)
--- NOTE | 2018-05-30 10:35 | ER Document Report ---
ED General - General Chief Complaint: Nausea/Vomiting Stated Complaint: VOMITING Time Seen by Provider: 05/30/18 10:22 Primary Care Provider: MAURIZIO HE MD [ACTIVE STAFF] - Follow up as needed Notes: Patient is a 57-year-old female who presents to the emergency department with a chief complaint of nausea and vomiting. Her symptoms started this morning around 3:00 in the morning. She also states that she has some associated diarrhea. She states for the past week she has been using a CPAP machine, which she has been having some difficulty with because they have been increasing and decreasing the pressures from a remote location. She has not seen a motion and time study teacher for her sleep apnea. Her sleep apnea is being managed by her primary care doctor. She also states that she also has associated headache. S he denies any fevers but admits to having some chills. TRAVEL OUTSIDE OF THE [place] IN LAST 30 DAYS: No - Related Data Allergies/Adverse Reactions: No Known Allergies Allergy (Verified 01/02/18 16:56) Past Medical History - Social History Smoking Status: Unknown if Ever Smoked Family History: Reviewed & Not Pertinent Renal/ Medical History: Reports: Hx Kidney Stones. Denies: Hx Peritoneal Dialysis Past Surgical History: Reports: Hx Section, Hx Kidney (Renal Surgery) Review of Systems - Review of Systems Notes: REVIEW OF SYSTEMS: CONSTITUTIONAL : Denies recent illness. Denies recent unintentional weight loss. Denies fever, chills, or sweats. EENT: Denies eye, ear, throat, or mouth pain, discharge, or symptoms. Denies nasal or sinus congestion. CARDIOVASCULAR: Denies chest pain. RESPIRATORY: Denies shortness of breath, cough, congestion, difficulty breathing, or wheezing. GASTROINTESTINAL: See HPI GENITOURINARY: Denies difficulty urinating, burning, blood in urine, urgency or frequency. MUSCULOSKELETAL: Denies neck and back pain. Denies joint pain or swelling. SKIN: Denies rash, itchiness, or lesions HEMATOLOGIC : Denies easy bruising or bleeding. LYMPHATIC: Denies swollen, painful, enlarged glands. NEUROLOGICAL: See HPI PSYCHIATRIC: Denies stress, anxiety, alteration in sleep patterns, or depression. All other systems reviewed and negative. Physical Exam - Vital signs Vitals: Temp Pulse Resp BP Pulse Ox 99.0 F 76 14 105/64 96 05/30/18 08:49 05/30/18 08:49 05/30/18 08:49 05/30/18 08:49 05/30/18 08:49 - Notes Notes: PHYSICAL EXAMINATION: GENERAL: Appears as if she does not feel well, healthy, well-nourished, no acute distress. HEAD: Normocephalic, atraumatic. EYES: PERRL, conjunctiva normal, all extraocular movements intact, sclera nonicteric ENT: Dry mucous membranes. NECK: Supple, no noticeable swelling, redness, rash. Normal range of motion. LUNGS: Equal breath sounds bilaterally and clear to auscultation. No wheezes rales or rhonchi. CARDIOVASCULAR: S1-S2, regular rate, regular rhythm. Radial pulses 2+, normal. ABDOMEN: Normoactive bowel sounds. Soft, mildly tender, no guarding, no rebound tenderness, and no masses palpated. EXTREMITIES: Normal strength and range of motion, no pitting or edema. No cyanosis. NEUROLOGICAL: Moves all extremities upon command. Strength 5/5 in all extremities. PSYCH: Normal mood, normal affect. SKIN: Warm, dry. No rash, lesions, ulcerations noted. Normal skin turgor. Course - Re-evaluation Re-evalutation: 05/30/18 the patient will be given 4 mg of Zofran and a liter bolus to help with her symptoms. I suspect the patient could possibly have gastroenteritis, but I will add troponin and EKG to rule out an TN. Basic labs will also be drawn to rule out any electrolyte abnormality. 05/30/18 12:48 I have reassessed the patient and she states that she feels better after receiving IV fluids and Zofran. She still has some abdominal tenderness area, but states that it is better. She will be p.o. challenged. If she is able to tolerate p.o. fluids, then she is stable for discharge. Patient's EKG is unremarkable. She does have a leukocytosis, but I suspect it is due to her vomiting and diarrhea. Her electrolytes are normal. 05/30/18 13:30 Patient was able to tolerate p.o. fluids. I suspect her headache is due to her frustration of the increase in decrease of pressures from her CPAP machine. I suspect she has enteritis. She states she does feel better after only receiving 4 mg of Zofran and a liter of fluids. She will be sent home with a Zofran dose pack and will follow up with her primary care provider. She will also follow-up with Dr. He to have her sleep study evaluated and manage her CPAP settings. Very low suspicion of the patient having an acute TN, as she does have associated diarrhea with chills. I also very low suspicion for a bowel obstruction because the patient has had some associated sick contacts. She will be sent home with BRAT diet instructions. Verbal discharge instructions were given to the patient. They verbalized understanding. They are stable for discharge. - Vital Signs Vital signs: Temp Pulse Resp BP Pulse Ox 98.3 F 55 L 16 99/57 L 99 05/30/18 13:38 05/30/18 13:38 05/30/18 13:38 05/30/18 13:38 05/30/18 13:38 - Laboratory Result Diagrams: 05/30/18 08:20 05/30/18 08:20 Laboratory results interpreted by me: 05/30/18 05/30/18 08:20 08:20 WBC 15.2 H Seg Neuts % (Manual) 87 H Lymphocytes % (Manual) 4 L Abs Neuts (Manual) 13.7 H Carbon Dioxide 31 H ALT 8 L - EKG Interpretation by Me Additional EKG results interpreted by me: 05/30/18 Sinus rhythm. Rate 69. OK 168; QRS 90; QTC [address] elevations or depressions noted. Discharge - Discharge Clinical Impression: Nausea and vomiting Qualifiers: Vomiting type: unspecified Vomiting Intractability: unspecified Qualified Code (s): R11.2 - Nausea with vomiting, unspecified Diarrhea Qualifiers: Diarrhea type: unspecified type Qualified Code(s): R19.7 - Diarrhea, unspecified Condition: Stable Disposition: HOME, SELF-CARE Additional Instructions: You were seen today in the emergency department for nausea, vomiting, and diarrhea. It appears that you have a viral infection causing your nausea, vomiting, diarrhea. You have been given Zofran, medication for nausea. You may take 1 tablet every 4-6 hours as needed. Once you start feeling better, please start eating bananas, rice, applesauce, and toast as these are easier on your stomach. You may take Tylenol 1000 mg every 6 hours as needed for any headache. As far as your CPAP goes, please follow up with Dr. He, the motion and time study teacher in regards to your CPAP issues. If you have developed fever greater than 100.4 F, or unable to keep food or drink down, or have any symptoms that are worrisome to you, please return to the emergency department. Forms: Return to Work Referrals: MAURIZIO HE MD [ACTIVE STAFF] - Follow up as needed
[2018-05-30 11:25] LABS: CREATINE KINASE MB 0.61 ng/mL (<4.55)
[2018-05-30 11:26] LABS: TROPONIN I < 0.012 ng/mL
[2018-05-30] MEDS ORDERED: ACETAMINOPHEN 325 MG TABLET PO ONE (12:48)
--- NOTE | 2018-05-30 13:11 | EKG REPORT ---
SEVERITY:- BORDERLINE ECG - SINUS RHYTHM BORDERLINE T ABNORMALITIES, ANT-LAT LEADS : Confirmed by: Charlie Blue MD 30-May-2018 13:11:11
[2018-05-30] MEDS ORDERED: ONDANSETRON ODT 4 MG TAB (6 TAB/ER DISP) PO PRN (13:31)
[2018-05-30 13:39] VITALS: BP 99/57
== END 2018-05-30 13:46 | disposition home or self-care (01) ==
LOC: ER 08:42
DX: R11.2 Nausea with vomiting, unspecified (principal); R19.7 Diarrhea, unspecified; Z87.442 Personal history of urinary calculi
CPT/HCPCS: 93005; 96374; 99284; 96361; 36415; 82553; 82550; 83690; 85025; 80053; 84484; 93010; J2405; J7030

== ENCOUNTER → 2018-08-15 | Outpatient (CLI) | payer BC ==
[2018-08-15 09:48] LABS: ABSOLUTE EOSINOPHILS # (AUTO) 0.2 10^3/uL (0.0-0.6); ABSOLUTE LYMPHOCYTES (AUTO) 1.5 10^3/uL (0.5-4.7); ABSOLUTE MONOCYTES (AUTO) 0.3 10^3/uL (0.1-1.4); ABSOLUTE NEUT (AUTO) 3.5 10^3/uL (1.7-8.2); BASOPHILS % (AUTO) 0.6 % (0-2); EOSINOPHILS % (AUTO) 3.7 % (0-6); HEMOGLOBIN 12.6 g/dL (12.0-15.5); LYMPHOCYTES % (AUTO) 26.9 % (13-45); MEAN CORPUSCULAR HEMOGLOBIN 28.1 pg (27.0-33.4); MEAN CORPUSCULAR HGB CONC 32.2 g/dL (32.0-36.0); MEAN CORPUSCULAR VOLUME 87 fl (80-97); MONOCYTES % (AUTO) 6.1 % (3-13); PLATELET COUNT 268 10^3/uL (150-450); RED BLOOD COUNT 4.46 10^6/uL (3.72-5.28); RED CELL DISTRIBUTION WIDTH 12.9 % (11.5-14.0); SEGMENTED NEUTROPHILS % (AUTO) 62.7 % (42-78); TOTAL CELLS COUNTED % (AUTO) 100 %; WHITE BLOOD COUNT 5.6 10^3/uL (4.0-10.5)
[2018-08-15 10:19] LABS: ALANINE AMINOTRANSFERASE 23 U/L (9-52); ALBUMIN 3.6 g/dL (3.5-5.0); ALKALINE PHOSPHATASE 61 U/L (38-126); ANION GAP 5 (5-19); ASPARTATE AMINO TRANSFERASE 18 U/L (14-36); BILIRUBIN,DIRECT 0.2 mg/dL (0.0-0.4); BILIRUBIN,TOTAL 0.2 mg/dL (0.2-1.3); BLOOD UREA NITROGEN 13 mg/dL (7-20); CARBON DIOXIDE 30 mmol/L (22-30); CHLORIDE 107 mmol/L (98-107); GLUCOSE 79 mg/dL (75-110); POTASSIUM 4.5 mmol/L (3.6-5.0); SODIUM 142.2 mmol/L (137-145); TOTAL PROTEIN 6.3 g/dL (6.3-8.2)
== END ==
LOC: OD 08:53
PROVIDERS: ATTEND Family Medicine Geriatric Medicine
DX: N93.9 Abnormal uterine and vaginal bleeding, unspecified (principal); Z79.899 Other long term (current) drug therapy
CPT/HCPCS: 36415; 80053; 85025

== ENCOUNTER → 2018-08-15 | Outpatient (CLI) | payer BC ==
--- NOTE | 2018-08-15 09:06 | RADIOLOGY REPORT (SQ) ---
EXAM DESCRIPTION: CT HEAD WITHOUT COMPLETED DATE/TIME: 08/15/2018 8:32 am REASON FOR STUDY: DIZZINESS AND GIDDINESS R42 DIZZINESS AND GIDDINESS COMPARISON: None. TECHNIQUE: Axial images acquired through the brain without intravenous contrast. Images reviewed wi th bone, brain and subdural windows. Images stored on PACS. All CT scanners at this facility use dose modulation, iterative reconstruction, and/or weight based d osing when appropriate to reduce radiation dose to as low as reasonably achievable (ALARA). [facility]: Dose Right [facility]: CareDose [facility]: Dose Right [facility]: Teradose 4D [facility]: Smart [employer] Content RADIATION DOSE: CT Rad equipment meets quality standard of care and radiation dose reduction techniq ues were employed. CTDIvol: 48.7 mGy. DLP: 1004 mGy-cm. mGy. LIMITATIONS: None. FINDINGS: VENTRICLES: Normal size and contour. CEREBRUM: No masses. No hemorrhage. No midline shift. No evidence for acute infarction. Normal gra y/white matter differentiation. No areas of low density in the white matter. CEREBELLUM: No masses. No hemorrhage. No alteration of density. No evidence for acute infarction. EXTRAAXIAL SPACES: No fluid collections. No masses. ORBITS AND GLOBE: No intra- or extraconal masses. Normal contour of globe without masses. CALVARIUM: No fracture. PARANASAL SINUSES: Mucosal thickening noted within the frontal, ethmoid , sphenoid, and maxillary si nuses. Nasal septal deviation to the left. Polypoid mucosal thickening left nasal fossa. SOFT TISS UES: No mass or hematoma. OTHER: No other significant finding. IMPRESSION: CHRONIC SINUSITIS. LEFT NASAL POLYP. OTHERWISE, NORMAL BRAIN CT WITHOUT CONTRAST. EVIDENCE OF ACUTE STROKE: NO. COMMENT: Quality ID # [id number]: Final reports with documentation of one or more dose reduction techniques (e.g., Automated exposure control, adjustment of the mA and/or kV according to patient size, use of iterative reconstruction technique) TECHNICAL DOCUMENTATION: JOB ID: [id number] [place]-69 2010 [employer]- All Rights Reserved Reading location - IP/workstation name: [email or web address]
== END ==
LOC: RAD 08:23
PROVIDERS: ATTEND Family Medicine Geriatric Medicine
DX: R42 Dizziness and giddiness (principal)
CPT/HCPCS: 70450

== ENCOUNTER → 2018-08-22 | Outpatient (CLI) | payer BC ==
--- NOTE | 2018-08-22 11:37 | WOMENS IMAGING REPORT ---
EXAM DESCRIPTION: U/S PELVIS NON-OB COMPLETED DATE/TIME: 08/22/2018 11:27 am REASON FOR STUDY: N95.0 N95.0 POSTMENOPAUSAL BLEEDING COMPARISON: None. TECHNIQUE: Dynamic and static grayscale images acquired of the pelvis via transabdominal approach an d recorded on PACS. Additional selected color Doppler and spectral images recorded. LIMITATIONS: None. FINDINGS: UTERUS: Contour normal. No mass. Uterus is 11 x 6 x 5 cm in size ENDOMETRIAL STRIPE: No focal or generalized thickening. No masses. Endometrial stripe 7 to 8 mm in t hickness. CERVIX: No nabothian cysts. RIGHT OVARY AND DOPPLER: Normal size, 2.3 x 2.2 x 2.1 cm in size. No worrisome masses. Normal arteria l vascular flow without evidence for torsion. LEFT OVARY AND DOPPLER: Normal size, 2.5 x 2.5 x 1.8 cm in size. No worrisome masses. Normal arterial vascular flow without evidence for torsion. FREE FLUID: None noted. OTHER: No other significant finding. IMPRESSION: NORMAL PELVIC ULTRASOUND BY TRANSABDOMINAL TECHNIQUE. TECHNICAL DOCUMENTATION: JOB ID: [id number] [employer]- All Rights Reserved Rev Reading location - IP/workstation name: [email or web address]
== END ==
LOC: WI 10:30
PROVIDERS: ATTEND Obstetrics & Gynecology Gynecology
DX: N95.0 Postmenopausal bleeding (principal)
CPT/HCPCS: 76856

== ENCOUNTER → 2018-08-25 | Outpatient (CLI) | payer BC ==
--- NOTE | 2018-08-25 12:49 | RADIOLOGY REPORT (SQ) ---
EXAM DESCRIPTION: CAROTID DOPPLER COMPLETED DATE/TIME: 08/25/2018 11:27 am REASON FOR STUDY: DIZZINESS R42 DIZZINESS AND GIDDINESS COMPARISON: None. TECHNIQUE: Grayscale ultrasound, Doppler velocity and spectra, and color Doppler images acquired of the extra-cranial carotid and vertebral arteries. Images stored on PACS. LIMITATIONS: None. FINDINGS: RIGHT CAROTID CCA Velocities: Within normal limits. ICA Velocities Peak systolic 1.09 m/s. End diastolic 0.45 m/s. Proximal ICA/CCA peak systolic ratio 1.92. Spectra normal. No significant plaque. LEFT CAROTID CCA Velocities: Within normal limits. ICA Velocities Peak systolic 0.53 m/s. End diastolic 0.22 m/s. Proximal ICA/CCA peak systolic ratio 0.82. Spectra normal. No significant plaque. VERTEBRAL ARTERIES: Antegrade flow. Normal waveforms. SUBCLAVIAN ARTERIES: No finding. OTHER: No other significant finding. IMPRESSION: NO HEMODYNAMICALLY SIGNIFICANT STENOSIS. COMMENT: Quality ID #[id number]: Velocity criteria are extrapolated from the diameter data as defined by t he Society of Radiologists in Ultrasound Consensus Conference. Radiology 2003: 229; 340-346. TECHNICAL DOCUMENTATION: JOB ID: [id number] [employer] All Rights Reserved Reading location - IP/workstation name: [email or web address]
== END ==
LOC: SP 09:55
PROVIDERS: ATTEND Family Medicine Geriatric Medicine
DX: R42 Dizziness and giddiness (principal)
CPT/HCPCS: 93880

== ENCOUNTER → 2018-11-28 | Outpatient (CLI) | payer BC ==
[2018-11-28 10:06] LABS: ABSOLUTE EOSINOPHILS # (AUTO) 0.2 10^3/uL (0.0-0.6); ABSOLUTE LYMPHOCYTES (AUTO) 1.5 10^3/uL (0.5-4.7); ABSOLUTE MONOCYTES (AUTO) 0.3 10^3/uL (0.1-1.4); BASOPHILS % (AUTO) 0.8 % (0-2); EOSINOPHILS % (AUTO) 4.1 % (0-6); HEMATOCRIT 40.7 % (36.0-47.0); LYMPHOCYTES % (AUTO) 30.7 % (13-45); MEAN CORPUSCULAR HEMOGLOBIN 27.8 pg (27.0-33.4); MEAN CORPUSCULAR VOLUME 87 fl (80-97); MONOCYTES % (AUTO) 5.9 % (3-13); PLATELET COUNT 235 10^3/uL (150-450); RED BLOOD COUNT 4.68 10^6/uL (3.72-5.28); RED CELL DISTRIBUTION WIDTH 12.8 % (11.5-14.0); SEGMENTED NEUTROPHILS % (AUTO) 58.5 % (42-78); TOTAL CELLS COUNTED % (AUTO) 100 %
[2018-11-28 10:36] LABS: ANION GAP 5 (5-19); BLOOD UREA NITROGEN 12 mg/dL (7-20); CALCIUM 9.1 mg/dL (8.4-10.2); CARBON DIOXIDE 31 mmol/L (22-30); CHLORIDE 104 mmol/L (98-107); GLUCOSE 83 mg/dL (75-110); POTASSIUM 4.5 mmol/L (3.6-5.0)
== END ==
LOC: OD 09:11
PROVIDERS: ATTEND Family Medicine Geriatric Medicine
DX: R42 Dizziness and giddiness (principal)
CPT/HCPCS: 36415; 80048; 85025

== ENCOUNTER → 2019-01-06 | Outpatient (CLI) | payer BC ==
--- NOTE | 2019-01-06 11:58 | RADIOLOGY REPORT (SQ) ---
EXAM DESCRIPTION: CT SINUSES FOR ENT COMPLETED DATE/TIME: 01/06/2019 8:27 am REASON FOR STUDY: J32.9 CHRONIC SINUSITIS, UNSPECIFIED J32.9 CHRONIC SINUSITIS, UNSPECIFIED COMPARISON: None. TECHNIQUE: Noncontrast scanning through the paranasal sinuses using bone algorithm. Reconstructed MPR images reviewed. All images stored on PACS. All CT scanners at this facility use dose modulation, iterative reconstruction, and/or weight based d osing when appropriate to reduce radiation dose to as low as reasonably achievable (ALARA). [facility]: Dose Right [facility]: CareDose [facility]: Dose Right [facility]: Teradose 4D [facility]: Intrinsic-ID RADIATION DOSE: 46.5mGy. LIMITATIONS: None. FINDINGS: Right sinuses and drainage pathways: Post-surgical changes: Surgical widening of the right maxillary outlet, resected posterior right ethm oid septa on coronal image 87. Resected middle turbinate Frontal sinus: Normal. Frontoethmoidal Recess: Filled with mucous membrane thickening Anterior Ethmoid Sinuses: Filled with fluid and mucous membrane thickening Posterior Ethmoid Sinuses: Normal. Sphenoid Sinus: Normal. Sphenoethmoidal Recess: Normal. Maxillary Sinus: There is surgical widening of the right maxillary sinus outlet on coronal image 87. Circumferential mucous membrane thickening in the right maxillary sinus without air-fluid levels or mucoperiosteal thickening Ostiomeatal Complex: Surgically widened Left Sinuses and Drainage Pathways: Post-Surgical Changes: Surgical widening left maxillary sinus outlet on coronal image 87. Resected middle turbinate. Frontal Sinus: Not developed Frontoethmoidal Recess: Normal. Anterior Ethmoid Sinuses: Minimal mucous membrane thickening anterior ethmoid air cells Posterior Ethmoid Sinuses: Fluid and mucous membrane thickening in the posterior left ethmoid air ce lls Sphenoid Sinus: Fluid in the left sphenoid sinus and sphenoethmoidal cell axial image 113 Sphenoethmoidal Recess: Normal. Maxillary Sinus: Mucous membrane thickening without mucoperiosteal thickening Ostiomeatal Complex: Surgically widened Right Olfactory Fossa: Multiple polyps. Left Olfactory Fossa: Multiple polyps Middle Turbinate Jackie Bullosa: No. Paradoxical Middle Turbinate: No. Atelectatic Uncinated Process: No. Frontal Jessica Cell Type I: No. Frontal Jessica Cell Type II: No. Interfrontal Sinus Septal Cell: None. Suptra-Orbital Ethmoid: None. Frontal Bullar Cell: None. Suprabullar Bullar Cell: None. Sphenoethmoidal ([place]) Cell: On the left. Pneumatization of the Anterior Clinoid Processes: No Hypoplastic Maxillary Sinus: None. Osteoneogenesis: None. Bone Dehiscence:None. Nasal Cavity: Normal. Nasal Septum: Mild leftward nasal septal deviation Anatomic Variants: Right Vidian Canal: Normal. Left Vidian Canal: Normal. IMPRESSION: Bilateral sinus surgery. Currently, inflammatory changes are seen throughout the sinuse s. TECHNICAL DOCUMENTATION: JOB ID: [id number] Quality ID # [id number]: Final reports with documentation of one or more dose reduction techniques (e.g., Au tomated exposure control, adjustment of the mA and/or kV according to patient size, use of iterative reconstruction technique) 2010 [employer]- All Rights Reserved Reading location - IP/workstation name: [email or web address]
== END ==
LOC: RAD 08:23
PROVIDERS: ATTEND Otolaryngology
DX: J32.9 Chronic sinusitis, unspecified (principal)
CPT/HCPCS: 70486

== ENCOUNTER 2019-07-10 22:18 | Emergency (ER) | payer BC ==
[2019-07-10] MEDS ORDERED: ONDANSETRON HCL INJ/PF 4 MG/2 ML SDV IV ONE (23:04)
[2019-07-10] MEDS ORDERED: NORMAL SALINE 1000 ML 1,000 ML IV ONE (23:04)
[2019-07-10] MEDS ORDERED: KETOROLAC TROMETHAMINE INJ/PF 30 MG/1 ML SDV IV ONE (23:04)
--- NOTE | 2019-07-10 23:13 | RADIOLOGY REPORT (SQ) ---
EXAM DESCRIPTION: X-RAY CHEST 1 VIEW CLINICAL HISTORY: 58 years, Female, chest congestion COMPARISON: None. FINDINGS: Portable upright chest at 2249 hours on 07/10/2019. The lungs are well expanded and clear. The costophrenic angles are sharp. The cardiac silhouette, hilar regions, trachea, soft tissues and bony structures are unremarkable aside from degenerative changes. IMPRESSION: No acute cardiopulmonary disease.
--- NOTE | 2019-07-10 23:15 | ER Document Report ---
Entered by JOSSY CUTLER SCRIBE 07/10/19 3220 Acting as scribe for:KETTY CASPER IV, MD ED Fever - General Chief Complaint: Fever Stated Complaint: FEVER Time Seen by Provider: 07/10/19 22:37 Primary Care Provider: NEETA SARMIENTO [NO LOCAL MD] - Follow up as needed Mode of Arrival: Ambulatory Information source: Patient Notes: This 58 year old female patient presents to the ED today with complaints of a fever for the past x2 days. Patient states that she would have temperatures between 98-99. Patient also reports cough, shortness of breath, dizziness, and sore throat. Patient states that the pain in her throat feels like someone is c hoking her. Patient also reports lower abdominal pain that started yesterday and is exacerbated by palpation. Patient denies dysuria, but reports urinary frequency due to increased water intake. Patient also states that she is nauseous. TRAVEL OUTSIDE OF THE [place] IN LAST 30 DAYS: No - Related Data Allergies/Adverse Reactions: No Known Allergies Allergy (Verified 01/02/18 16:56) Home Medications: multivitamin Past Medical History - General Information source: Patient - Social History Smoking Status: Never Smoker Cigarette use (# per day): No Chew tobacco use (# tins/day): No Smoking Education Provided: No Family History: Reviewed & Not Pertinent Patient has suicidal ideation: No Patient has homicidal ideation: No Renal/ Medical History: Reports: Hx Kidney Stones Past Surgical History: Reports: Hx Section, Hx Kidney (Renal Surgery) Review of Systems - Review of Systems Constitutional: See HPI, Fever EENT: See HPI, Throat pain Cardiovascular: See HPI, Dizziness Respiratory: See HPI, Cough, Short of breath Gastrointestinal: See HPI, Abdominal pain, Nausea Genitourinary: See HPI, Frequency. denies: Dysuria Female Genitourinary: No symptoms reported Musculoskeletal: No symptoms reported Skin: No symptoms reported Hematologic/Lymphatic: No symptoms reported Neurological/Psychological: No symptoms reported -: Yes All other systems reviewed and negative Physical Exam - Vital signs Vitals: Temp Pulse Resp BP Pulse Ox 97.8 F 68 18 131/78 H 98 07/10/19 22:20 07/10/19 22:20 07/10/19 22:20 07/10/19 22:20 07/10/19 22:20 - General General appearance: Alert - HEENT Head: Normocephalic, Atraumatic Eyes: Normal Pupils: PERRL Pharynx: Erythema - Mild pharyngeal erythema. No: Exudate - Respiratory Respiratory status: No respiratory distress Chest status: Nontender Breath sounds: Normal Chest palpation: Normal - Cardiovascular Rhythm: Regular Heart sounds: Normal auscultation Murmur: No Friction rub: No Gallop: None auscultated - Abdominal Inspection: Normal Distension: No distension Bowel sounds: Normal Tenderness: Tender - Tender to palpate in bilateral lower quadrants, Other - Abdomen soft. No peritoneal signs. No: Rebound Organomegaly: No organomegaly - Back Back: Normal, Nontender - Extremities General upper extremity: Normal inspection General lower extremity: Normal inspection - Neurological Neuro grossly intact: Yes - Psychological Associated symptoms: Normal affect, Normal mood - Skin Skin Temperature: Warm Skin Moisture: Dry Skin Color: Normal Course - Re-evaluation Re-evalutation: 07/11/19 02:22 Results of ED MSE discussed with patient. All questions were answered prior to discharge. Precautions, self quarantine for COVID 19 discussed with patient. Emergency signs and symptoms, reasons to return to the emergency department di scussed with patient. - Vital Signs Vital signs: Temp Pulse Resp BP Pulse Ox 97.8 F 68 18 131/78 H 98 07/10/19 22:20 07/10/19 22:20 07/10/19 22:20 07/10/19 22:20 07/10/19 22:20 - Laboratory Result Diagrams: 07/10/19 23:10 07/10/19 23:10 Laboratory results interpreted by me: 07/10/19 07/10/19 23:10 23:10 Carbon Dioxide 31 H Anion Gap 2 L Urine Ascorbic Acid 40 H Discharge - Discharge Clinical Impression: Fever and chills Abdominal pain Qualifiers: Abdominal location: unspecified location Qualified Code(s): R10.9 - Unspecified abdominal pain Condition: Good Disposition: HOME, SELF-CARE Instructions: Use of Lljv-Oho-Bexamwk Ibuprofen ([facility]) Additional Instructions: Return to the Emergency Department without delay if any worse. HOME CARE INSTRUCTIONS & INFORMATION: Thank you for choosing us for your medical needs. We hope you're satisfied with the care you received. After you leave, you must properly care for your problem and, at the same time, observe its progress. Any condition can change. Some illnesses can change rapidly over hours or days. If your condition worsens, return to the Emergency Department or see your physician promptly. ABOUT YOUR X-RAYS AND EKG'S: If you had an EKG or X-rays taken, they have been read by the Emergency Physician. The X-rays and EKG's will also be read by a Radiologist or Sliding Joint Maker within 24 hours. If discrepancies are noted, you will be notified by telephone. Please be certain the ED has a correct telephone number & address where you can be reached. Also, realize that some fractures or abnormalities do not show up on initial X-rays. If your symptoms continue, see your physician. ABOUT YOUR LABORATORY TEST: If you had laboratory tests, the results have been reviewed by the Emergency Physician. Some test results (for example cultures) may not be available for several days. You will be contacted if any test result shows you need additional treatment. Please be certain the ED has a correct telephone number and address where you can be reached. ABOUT YOUR MEDICATIONS: You will receive instructions on how to take your medicine on the prescription label you receive. Additional information may be provided by the Pharmacy. If you have questions afterwards, call the ED for clarification or further instructions. Some prescribed medications may cause drowsiness. Do not perform tasks such as driving a car or operating machinery without consulting your Pharmacist. If you feel you need a refill of pain m edication, your condition will need re-evaluation. Please do not call for a refill of any medication. ABOUT YOUR SIGNATURE: Signature of this document acknowledges to followin. Understanding that you received emergency treatment and that you may be released before al medical problems are known or treated. Please be certain the ED has a correct phone number & address where you can be reached. 2. Acknowledgement that you will arrange for follow-up care as recommended. 3. Authorization for the Emergency Physician to provide information to your follow-up Physician in order to maximize your care. AT ANY TIME, IF YOUR SYMPTOMS CHANGE SIGNIFICANTLY OR WORSEN OR YOU DEVELOP NEW SYMPTOMS, RETURN TO THE EMERGENCY DEPARTMENT IMMEDIATELY FOR RE-EVALUATION. OUR GOAL IS TO PROVIDE EXCELLENT MEDICAL CARE! WE HOPE THAT WE HAVE MET YOUR EXPECTATIONS DURING YOUR EMERGENCY DEPARTMENT VISIT AND THAT YOU FEEL YOU HAVE RECEIVED EXCELLENT CARE! Abdominal Pain There are many causes of abdominal pain. Pain can mean a serious problem requiring surgery (such as appendicitis). It can also be an innocent problem that goes away on its own (such as a viral infection). Often, time must pass to determine the cause of pain. The physician does not feel that hospitalization is necessary, at present. Things may change within the next 24 hours. Call the doctor or come back for re- examination if any problems occur, such as: (1) Pain that becomes more severe, steady, or becomes concentrated in one specific area. Also, pain that is more severe with movement or coughing. (2) Vomiting that persists or becomes more frequent. (3) Blood in the vomitus, urine, or bowel movements. Blood in the stool may have a tarry or black appearance. (4) Shaking chills or fever greater than 100 degrees F. (5) The abdomen becomes more distended or swollen. (6) Bowel movements cease. (7) Failure to improve as expected. Forms: Return to Work Referrals: NEETA SARMIENTO [NO LOCAL MD] - Follow up as needed ARSENIO MARIE MD [HONORARY] - Follow up as needed I personally performed the services described in the documentation, reviewed and edited the documentation which was dictated to the scribe in my presence, and it accurately records my words and actions.
[2019-07-10 23:27] LABS: ABSOLUTE BASOPHILS # (AUTO) 0.1 10^3/uL (0.0-0.2); ABSOLUTE EOSINOPHILS # (AUTO) 0.3 10^3/uL (0.0-0.6); ABSOLUTE LYMPHOCYTES (AUTO) 2.6 10^3/uL (0.5-4.7); ABSOLUTE MONOCYTES (AUTO) 0.5 10^3/uL (0.1-1.4); ABSOLUTE NEUT (AUTO) 4.6 10^3/uL (1.7-8.2); BASOPHILS % (AUTO) 0.8 % (0-2); EOSINOPHILS % (AUTO) 3.6 % (0-6); HEMOGLOBIN 12.5 g/dL (12.0-15.5); LYMPHOCYTES % (AUTO) 32.2 % (13-45); MEAN CORPUSCULAR HEMOGLOBIN 28.8 pg (27.0-33.4); MEAN CORPUSCULAR VOLUME 87 fl (80-97); MONOCYTES % (AUTO) 6.7 % (3-13); PLATELET COUNT 253 10^3/uL (150-450); RED BLOOD COUNT 4.34 10^6/uL (3.72-5.28); RED CELL DISTRIBUTION WIDTH 12.7 % (11.5-14.0); SEGMENTED NEUTROPHILS % (AUTO) 56.7 % (42-78); TOTAL CELLS COUNTED % (AUTO) 100 %; WHITE BLOOD COUNT 8.1 10^3/uL (4.0-10.5)
[2019-07-10 23:35] LABS: APPEARANCE,URINE CLEAR; BILIRUBIN,URINE NEGATIVE (NEGATIVE); COLOR,URINE STRAW; GLUCOSE, URINE NEGATIVE (NEGATIVE); KETONES,URINE NEGATIVE (NEGATIVE); LEUKOCYTE ESTERASE,URINE NEGATIVE (NEGATIVE); NITRITE,URINE NEGATIVE (NEGATIVE); PROTEIN,URINE NEGATIVE (NEGATIVE); URINE SPECIFIC GRAVITY 1.009; UROBILINOGEN,URINE NEGATIVE mg/dL (<2.0)
[2019-07-10 23:42] LABS: ALBUMIN 3.8 g/dL (3.5-5.0); ALKALINE PHOSPHATASE 66 U/L (38-126); ASPARTATE AMINO TRANSFERASE 21 U/L (14-36); BILIRUBIN,TOTAL 0.2 mg/dL (0.2-1.3); BLOOD UREA NITROGEN 17 mg/dL (7-20); CALCIUM 9.4 mg/dL (8.4-10.2); CARBON DIOXIDE 31 mmol/L (22-30); CHLORIDE 104 mmol/L (98-107); GLUCOSE 94 mg/dL (75-110); POTASSIUM 3.9 mmol/L (3.6-5.0); TOTAL PROTEIN 6.8 g/dL (6.3-8.2)
[2019-07-10 23:43] LABS: ANION GAP 2 (5-19)
[2019-07-11 00:24] LABS: A TYPE INFLUENZA AG NEGATIVE (NEGATIVE); B INFLUENZA AG NEGATIVE (NEGATIVE)
--- NOTE | 2019-07-11 02:02 | RADIOLOGY REPORT (SQ) ---
CT ABDOMEN AND PELVIS WITH INTRAVENOUS CONTRAST: 07/11/2019 12:59 AM CDT HISTORY: 88-year old with bilateral lower abdominal pain.. COMPARISON: None available TECHNIQUE: Axial contiguous images were obtained from the lung bases to the proximal femurs with intravenous intravenous contrast administered. Oral contrast was also given to the patient. Sagittal and coronal reconstructions were also obtained and reviewed. This exam was performed according to our departmental dose-optimization program, which includes automated exposure control, adjustment of the mA and/or KV according to the patient's size and/or use of iterative reconstruction technique. FINDINGS: No focal consolidative airspace opacities are seen. No discrete pleural effusion is seen. The visualized hepatic parenchyma is unremarkable. No focal enhancing lesion is seen. The gallbladder demonstrates no evidence of calcified gallstones The spleen, pancreas, and adrenals are normal in size and contour. The kidneys demonstrate no evidence of hydronephrosis. There is normal contrast excretion from both kidneys. No focal filling defect is seen at the ureters are visualized collecting systems. Bladder is minimally distended, but grossly appears unremarkable. The uterus is present. The stomach is not well distended. The small bowel loops appear unremarkable. No pericolonic inflammatory stranding is seen. The appendix appears unremarkable. There is no evidence of pneumoperitoneum or free fluid. The aorta and IVC appear normal in size. No significantly enlarged lymph nodes are seen in the abdomen or pelvis. Review of the bone show no evidence of any suspicious lytic or blastic lesions. Multilevel degenerative changes are seen within the lumbar spine. IMPRESSION: No acute process is seen within the abdomen or pelvis.
[2019-07-11 02:41] VITALS: BP 128/77
== END 2019-07-11 02:41 | disposition home or self-care (01) ==
LOC: ER 22:18
DX: Z20.828 Contact with and (suspected) exposure to other viral communicable diseases (principal); R50.9 Fever, unspecified; R05 Cough; R11.0 Nausea; R10.9 Unspecified abdominal pain; R42 Dizziness and giddiness; Z87.442 Personal history of urinary calculi
CPT/HCPCS: 99284; 96361; 96374; 96375; 36415; 87070; 87880; 83690; 85025; 87635; 81025; 80053; 81001; 87804; 71045; 74177; J1885; J2405; J7030

== ENCOUNTER 2019-09-17 07:16 | Emergency (ER) | payer BC ==
[2019-09-17 07:27] VITALS: BP 115/72
--- NOTE | 2019-09-17 07:45 | ER Document Report ---
ED General - General Chief Complaint: Sore Throat Stated Complaint: BODY ACHES/NAUSEA/VOMITING Time Seen by Provider: 09/17/19 07:27 Primary Care Provider: TRINI RONQUILLO MD [Primary Care Provider] - Follow up as needed Notes: Patient presents with body aches dry cough intermittent shortness of breath for about 2 days. 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 No phlegm. No documented fever here. She says that she "gasps" intermittently to catch her breath is able to ambulate around her room without much discomfort. TRAVEL OUTSIDE OF THE [place] IN LAST 30 DAYS: No - Related Data Allergies/Adverse Reactions: No Known Allergies Allergy (Verified 01/02/18 16:56) Past Medical History - General Information source: Patient - Social History Smoking Status: Never Smoker Family History: Reviewed & Not Pertinent Patient has homicidal ideation: No Renal/ Medical History: Reports: Hx Kidney Stones. Denies: Hx Peritoneal Dialysis Past Surgical History: Reports: Hx Section, Hx Kidney (Renal Surgery) Review of Systems - Review of Systems Notes: REVIEW OF SYSTEMS GEN: Denies fever, chills, weight loss ENT: Denies sore throat, nasal discharge, ear pain EYES: Denies blurry vision, eye pain, discharge CV: Denies chest pain, palpitations, edema RESP: Cough dry shortness of breath GI: Denies abdominal pain, nausea, vomiting, diarrhea MSK: Denies joint pain/swelling, edema, SKIN: Denies rash, skin lesions LYMPH: Denies swollen glands/lymph nodes NEURO: Denies headache, focal weakness or numbness, dizziness PSYCH: Denies depression, suicidal or homicidal ideation PHYSICAL EXAMINATION General: No acute distress, well-nourished Head: Atraumatic, normocephalic ENT: Mouth normal, oropharynx moist, no exudates or tonsillar enlargement Eyes: Conjunctiva normal, pupils equal, lids normal Neck: No JVD, supple, no guarding CVS: Normal rate, regular rhythm, no murmurs Resp: No resp distress, equal and normal breath sounds bilaterally GI: Nondistended, soft, no tenderness to palpation, no rebound or guarding Ext: No deformities, no edema, normal range of motion in upper and lower ext Back: No CVA or midline TTP Skin: No rash, warm Lymphatic: No lymphadeopathy noted Neuro: Awake, alert. Face symmetric. GCS 15. Physical Exam - Vital signs Vitals: Temp Pulse Resp BP Pulse Ox 98.5 F 96 14 115/72 99 09/17/19 07:24 09/17/19 07:24 09/17/19 07:24 09/17/19 07:24 09/17/19 07:24 Course - Re-evaluation Re-evalutation: 09/17/19 15:22 Viral syndrome, test for COVID Clinically looks well and can be discharged home no signs of pneumonia and vitals normal Given work note Supportive care discussed coronary precautions given I have discussed with the patient there likely diagnosis, aftercare plan, follow-up plans and my usual and customary return precautions. They verbalized understanding of this. - Vital Signs Vital signs: Temp Pulse Resp BP Pulse Ox 98.5 F 96 14 115/72 99 09/17/19 07:35 09/17/19 07:24 09/17/19 07:24 09/17/19 07:24 09/17/19 07:24 - Diagnostic Test Radiology reviewed: Image reviewed, Reports reviewed Discharge - Discharge Clinical Impression: Viral syndrome Condition: Good Disposition: HOME, SELF-CARE Instructions: Acetaminophen, Fever ([facility]) Additional Instructions: You have been evaluated for complaints or symptoms which could reflect infection with coronavirus/Covid-19 disease. Until you see the results of your test, you should assume you are infected. Please stay at home with minimal interaction to others, wash your hands, practice social distancing while at home, and remained at home without any travel outside of the home for: 1. At least 3 days (72 hours) have passed since recovery defined as resolution of fever without the use of fever-reducing medications and improvement in respiratory symptoms (e.g., cough, shortness of breath) AND 2. At least 7 days have passed since symptoms first appeared. Forms: Return to Work Referrals: TRINI RONQUILLO MD [Primary Care Provider] - Follow up as needed
== END 2019-09-17 07:55 | disposition home or self-care (01) ==
LOC: ER 07:16
DX: B34.9 Viral infection, unspecified (principal); J02.9 Acute pharyngitis, unspecified; M79.10 Myalgia, unspecified site; R11.2 Nausea with vomiting, unspecified; R06.02 Shortness of breath; R05 Cough; Z20.828 Contact with and (suspected) exposure to other viral communicable diseases
CPT/HCPCS: 99283; 87635; C9803

== ENCOUNTER 2019-12-25 05:41 | Observation (INO) | payer BC ==
[~2019-12-25 05:41] MED LIST: LACTATED RINGERS 1000 ML IV PRN; LIDOCAINE 0.5% INJ-PF (5 MG/ML) 50 ML SDV SUBCUT PRN
[2019-12-25] MEDS ORDERED: CEFAZOLIN 2 GM/D5W RTU 2 GM/50 ML RTUPB IV ONE (06:57)
[2019-12-25] MEDS ORDERED: MIDAZOLAM 2 MG/2 ML INJ ONE (07:05)
[2019-12-25] MEDS ORDERED: HYDROMORPHONE HCL INJ/PF 2 MG/ML AMPULE ONE (07:05)
[2019-12-25] MEDS ORDERED: FENTANYL CITRATE INJ/PF 250 MCG/5 ML AMPULE ONE (07:05)
[2019-12-25] MEDS ORDERED: PROPOFOL INJ 200 MG/20 ML VIAL IV ONE (07:06)
[2019-12-25] MEDS ORDERED: OXYMETAZOLINE HCL 0.05% NASAL SPRAY 15 ML BOTTLE ONE (07:17)
[2019-12-25] MEDS ORDERED: BUPIVACAINE HCL 0.5%/EPI 1:200000 INJ 1.8 ML CARTRIDGE ONE (07:17)
[2019-12-25] MEDS ORDERED: BACITRACIN ZINC OINTMENT 15 GM ONE (07:19)
[2019-12-25] MEDS ORDERED: MINERAL OIL (STERILE) 10 ML VIAL ONE (07:19)
[2019-12-25] MEDS ORDERED: BUPIVACAINE HCL 0.5%-EPI 1:200000 INJ/PF 30 ML VIAL ONE (07:20)
[2019-12-25] MEDS ORDERED: TOBRAMYCIN SULFATE/DEXAMETH OPH OINTMENT 3.5 GM ONE (07:51)
[2019-12-25] MEDS ORDERED: MORPHINE SULFATE 10 MG/ML INJ IV PRN ×2 (08:48→12:31)
[2019-12-25] MEDS ORDERED: PROMETHAZINE HCL INJ 25 MG/1 ML VIAL IV PRN ×4 (08:48→12:31)
[2019-12-25] MEDS ORDERED: MEPERIDINE HCL/PF INJ 25 MG/1 ML DISP.SYRIN IV PRN ×2 (08:48→12:31)
[2019-12-25] MEDS ORDERED: FENTANYL CITRATE INJ/PF 100 MCG/2 ML AMPUL IV PRN ×6 (08:48→12:31)
[2019-12-25] MEDS ORDERED: DIPHENHYDRAMINE HCL 50 MG/ML VIAL IV PRN ×2 (08:48→12:31)
[2019-12-25 10:06] LABS: ALBUMIN 3.5 g/dL (3.5-5.0); ALKALINE PHOSPHATASE 59 U/L (38-126); ANION GAP 7 (5-19); ASPARTATE AMINO TRANSFERASE 43 U/L (14-36); BILIRUBIN,DIRECT 0.3 mg/dL (0.0-0.4); BILIRUBIN,TOTAL 0.6 mg/dL (0.2-1.3); BLOOD UREA NITROGEN 11 mg/dL (7-20); CARBON DIOXIDE 21 mmol/L (22-30); CHLORIDE 112 mmol/L (98-107); GLUCOSE 116 mg/dL (75-110); POTASSIUM 4.3 mmol/L (3.6-5.0); TOTAL PROTEIN 6.6 g/dL (6.3-8.2)
[2019-12-25] MEDS ORDERED: DEXAMETHASONE SOD PHOSPHATE INJ 4 MG/1 ML VIAL ONE (10:51)
[2019-12-25] MEDS ORDERED: ONDANSETRON HCL INJ/PF 4 MG/2 ML SDV ONE (10:51)
[2019-12-25] MEDS ORDERED: ROCURONIUM BROMIDE INJ 50 MG/5 ML VIAL IV ONE (10:51)
[2019-12-25] MEDS ORDERED: NEOSTIGMINE METHYLSULFATE 10 MG/10 ML VIAL ONE (10:51)
[2019-12-25] MEDS ORDERED: GLYCOPYRROLATE 1 MG/5 ML VIAL ONE (10:51)
[2019-12-25] MEDS ORDERED: CEFAZOLIN INJ 1 GM VIAL ONE (11:10)
[2019-12-25] MEDS ORDERED: ONDANSETRON HCL INJ/PF 4 MG/2 ML SDV IV PRN (12:40)
[2019-12-25] MEDS ORDERED: AMMONIA INHALANTS 10 AMPUL/BOX IH ONE (14:01)
[2019-12-25] MEDS: NALOXONE HCL INJ/PF 0.4 MG/1 ML SDV ONE ×4 (14:26→14:58)
[2019-12-25 15:16] LABS: ARTERIAL BLOOD BASE EXCESS -0.3 mmol/L; ARTERIAL BLOOD O2 SATURATION 94.4 % (94-98); ARTERIAL BLOOD PCO2 43.2 mmHg (35-45); ARTERIAL BLOOD PH 7.38 (7.35-7.45); ARTERIAL BLOOD TOTAL CO2 26.3 mmol/L (21-25)
[2019-12-25 15:17] LABS: ARTERIAL BLOOD FIO2 32%
[2019-12-25] MEDS ORDERED: ONDANSETRON 4 MG TAB.RAPDIS PO PRN (15:28)
[2019-12-25] MEDS: RINGERS SOLUTION,LACTATED 1,000 ML IV PRN (18:13)
--- NOTE | 2019-12-25 18:47 | ADVANCED CARE ---
- Diagnosis (1) Postoperative delirium Diagnosis Current: Yes (2) NGOC (obstructive sleep apnea) Diagnosis Current: Yes (3) Chronic allergic rhinitis Diagnosis Current: Yes (4) Nasal polyps Diagnosis Current: Yes Attendance: Patient and nursing Resuscitation Status: Full Code Discussion: All aspects of code status discussed with patient/POA including cardioversion, chest compressions, and intubation and the patient/POA indicated they wish to be full code MPOA is designated as: Johan Sernaly Henri Time Spent: Greater than 16 minutes
--- NOTE | 2019-12-25 18:47 | PDOC H&P ---
History of Present Illness Admission Date/PCP: LEON MILES MD History of Present Illness: HERB AUGUSTE is a 59 year old female with past medical history significant for untreated NGOC, sinusitis who presents for surgery with ENT on her sinuses, experienced excessive somnolence postoperatively and hospitalist service was called to admit the patient for observation and monitoring. Patient denies any cardiac or pulmonary history. She was given Narcan in the OR with some mild imp rovement in her mentation. Upon my examination, patient was speaking more clearly and fully alert and oriented x4. She does seem to be in a fair amount of pain from her surgery and states she will need some pain management for this in the near future. As she has been given Narcan recently narcotics will be ineffective for some time and I have asked nursing to give her some Motrin as needed as well as Tylenol. Patient's only prior surgery was a years ago and she has never smoked, does not drink alcohol use illicit drugs. EKG done after surgery and was essentially normal and recent laboratory studies are unremarkable overall. Admitted to hospitalist service for further monitoring. Past Medical History Cardiac Medical History: Denies: Coronary Artery Disease, Myocardial Infarction, Hypertension Pulmonary Medical History: Reports: Sleep Apnea Denies: Asthma, Bronchitis, Chronic Obstructive Pulmonary Disease (COPD), Pneumonia Neurological Medical History: Denies: Seizures Musculoskeltal Medical History: Denies: Arthritis Hematology: Denies: Anemia Past Surgical History Past Surgical History: Reports: Section Social History Information Source: Patient, [facility] Records Lives with: Family Smoking Status: Never Smoker Frequency of Alcohol Use: None Hx Recreational Drug Use: No Drugs: None Hx Prescription Drug Abuse: No - Advance Directive Resuscitation Status: Full Code Surrogate healthcare decision maker:: Daughter Jessica Monahan Family History Family History: CAD Parental Family History Reviewed: Yes Children Family History Reviewed: Yes Sibling(s) Family History Reviewed.: Yes Medication/Allergy Home Medications: Fluticasone Propionate [Flonase Nasal [place] 50 Mcg/[place] 16 gm] 1 spray NASL Q12 12/22/19 Multivitamin [Multivitamins] 1 each PO ASDIR PRN 12/22/19 Allergies/Adverse Reactions: No Known Allergies Allergy (Unverified 12/25/19 06:50) Review of Systems All systems: reviewed and no additional remarkable complaints except as stated - Review of systems per HPI, otherwise negative Physical Exam Vital Signs: Temp Pulse Resp BP Pulse Ox 97.4 F 65 20 136/79 H 99 12/25/19 16:45 12/25/19 16:45 12/25/19 16:45 12/25/19 16:45 12/25/19 16:45 Intake & Output 12/24/19 12/25/19 12/26/19 06:59 06:59 06:59 Intake Total 1900 Output Total 1250 Balance 650 Weight 73 kg Results Laboratory Results: 12/25/19 09:29 12/25/19 12/25/19 09:29 14:55 Carbonic Acid 1.30 HCO3/H2CO3 Ratio 19:1 ABG pH 7.38 ABG pCO2 43.2 ABG pO2 73.0 L ABG HCO3 25.0 H ABG O2 Saturation 94.4 ABG Base Excess -0.3 FiO2 32% Sodium 139.7 Potassium 4.3 Chloride 112 H Carbon Dioxide 21 L Anion Gap 7 BUN 11 Creatinine 0.49 L Est GFR ( Amer) > 60 Glucose 116 H Calcium 9.0 Total Bilirubin 0.6 AST 43 H Alkaline Phosphatase 59 Total Protein 6.6 Albumin 3.5 12/25/19 15:02 Troponin I < 0.012 Assessment and Plan - Diagnosis (1) Postoperative delirium Is this a current diagnosis for this admission?: Yes Plan: Occurred on 12/24 postoperatively after having a septorhinoplasty and turbinate reduction for chronic allergic sinusitis and nasal polyps Given Narcan in OR with minimal improvement Progressively more alert and fully oriented at time of hospitalist exam Resolving Avoid sedating medications (2) NGOC (obstructive sleep apnea) Is this a current diagnosis for this admission?: Yes (3) Chronic allergic rhinitis Is this a current diagnosis for this admission?: Yes (4) Nasal polyps Is this a current diagnosis for this admission?: Yes Plan: Status post sinus surgery with ENT Use Tylenol and Motrin for pain and inflammation management as patient was given Narcan in the OR ENT aware of admission and will need to follow-up with the patient postop - Time Time Spent with patient: 35 or more minutes Medications reviewed and adjusted accordingly: Yes Anticipated Discharge Disposition: Home, Self Care Anticipated Discharge Timeframe: within 48 hours
--- NOTE | 2019-12-25 21:00 | EKG REPORT ---
SEVERITY:- BORDERLINE ECG - SINUS RHYTHM BORDERLINE T ABNORMALITIES, ANT-LAT LEADS : Confirmed by: Yanique Montoya 25-Dec-2019 20:59:13
--- NOTE | 2019-12-25 21:00 | EKG REPORT ---
SEVERITY:- NORMAL ECG - SINUS RHYTHM : Confirmed by: Yanique Montoya 25-Dec-2019 20:59:19
[2019-12-25] MEDS: ACETAMINOPHEN 325 MG TABLET PO PRN (21:38)
[2019-12-25] MEDS: IBUPROFEN 800 MG TABLET PO SCH (23:12)
[2019-12-26] MEDS: IBUPROFEN 800 MG TABLET PO SCH ×3 (05:57→18:25)
[2019-12-26] MEDS: HYDROCODONE/ACETAMINOPHEN 5-325 MG TABLET PO PRN ×2 (06:06→11:47)
[2019-12-26 07:15] LABS: ABSOLUTE LYMPHOCYTES (AUTO) 3.1 10^3/uL (0.5-4.7); ABSOLUTE MONOCYTES (AUTO) 0.5 10^3/uL (0.1-1.4); ABSOLUTE NEUT (AUTO) 6.3 10^3/uL (1.7-8.2); BASOPHILS % (AUTO) 0.5 % (0-2); EOSINOPHILS % (AUTO) 0.3 % (0-6); HEMATOCRIT 35.5 % (36.0-47.0); HEMOGLOBIN 11.8 g/dL (12.0-15.5); LYMPHOCYTES % (AUTO) 30.7 % (13-45); MEAN CORPUSCULAR HEMOGLOBIN 28.7 pg (27.0-33.4); MEAN CORPUSCULAR HGB CONC 33.3 g/dL (32.0-36.0); MEAN CORPUSCULAR VOLUME 86 fl (80-97); MONOCYTES % (AUTO) 5.3 % (3-13); PLATELET COUNT 207 10^3/uL (150-450); RED BLOOD COUNT 4.12 10^6/uL (3.72-5.28); RED CELL DISTRIBUTION WIDTH 13.1 % (11.5-14.0); SEGMENTED NEUTROPHILS % (AUTO) 63.2 % (42-78); TOTAL CELLS COUNTED % (AUTO) 100 %
[2019-12-26 07:32] LABS: ALKALINE PHOSPHATASE 54 U/L (38-126); ASPARTATE AMINO TRANSFERASE 22 U/L (14-36); BILIRUBIN,DIRECT 0.1 mg/dL (0.0-0.4); BILIRUBIN,TOTAL 0.6 mg/dL (0.2-1.3); BLOOD UREA NITROGEN 14 mg/dL (7-20); CALCIUM 8.8 mg/dL (8.4-10.2); GLUCOSE 135 mg/dL (75-110); PHOSPHORUS 3.3 mg/dL (2.5-4.5); POTASSIUM 3.8 mmol/L (3.6-5.0); TOTAL PROTEIN 5.6 g/dL (6.3-8.2)
[2019-12-26 07:37] LABS: ANION GAP 6 (5-19); CARBON DIOXIDE 27 mmol/L (22-30); CHLORIDE 106 mmol/L (98-107)
[2019-12-26] MEDS: RINGERS SOLUTION,LACTATED 1,000 ML IV PRN (09:18)
[2019-12-26] MEDS: DOCUSATE SODIUM 100 MG CAPSULE PO SCH (09:19)
[2019-12-26] MEDS: ENOXAPARIN SODIUM INJ 40 MG/0.4 ML DISP.SYRIN SUBCUT SCH (09:19)
--- NOTE | 2019-12-26 17:26 | PDOC PROGRESS REPORT ---
Subjective Subjective:: HERB AUGUSTE is a 59 year old female with past medical history significant for untreated NGOC, sinusitis who presents for surgery with ENT on her sinuses, experienced excessive somnolence postoperatively and hospitalist service was called to admit the patient for observation and monitoring. Patient denies any cardiac or pulmonary history. She was given Narcan in the OR with some mild improvement in her mentation. Upon my examination, patient was speaking more clearly and fully alert and oriented x4. She does seem to be in a fair amount of pain from her surgery and states she will need some pain management for this in the near future. As she has been given Narcan recently narcotics will be ineffective for some time and I have asked nursing to give her some Motrin as needed as well as Tylenol. Patient's only prior surgery was a years ago and she has never smoked, does not drink alcohol use illicit drugs. EKG done after surgery and was essentially normal and recent laboratory studies are unremarkable overall. Admitted to hospitalist service for further monitoring. 12/26/2019 Patient seems to be doing better today in terms of her mentation and alertness however she states her pain is intermittently poorly controlled. She had some Iona earlier today and stated it made her chest heavy and made her sleepy. She is specifically requesting morphine which I stated would only make these symptoms worse. We will keep the Iona and just reduce it to 1 tablet instead of 2. Labs and vitals are stable and patient can likely be discharged tomorrow. She states she is getting dizzy intermittently when she walks likely due to equilibrium being off from her sinus surgery and edema. Discussed case with nursing today. Chloraseptic Scalf added Reason For Visit: POST-OP DELIRIUM Physical Exam Vital Signs: Temp Pulse Resp BP Pulse Ox 97.7 F 65 18 101/62 97 12/26/19 15:01 12/26/19 15:01 12/26/19 15:01 12/26/19 15:01 12/26/19 15:01 Intake & Output 12/25/19 12/26/19 12/27/19 06:59 06:59 06:59 Intake Total 2380 1000 Output Total 2550 1400 Balance -170 -400 Weight 73 kg 78.6 kg General appearance: PRESENT: no acute distress, well-developed, well-nourished Head exam: PRESENT: other - Diffuse edema and mild erythema of skin overlying maxillary sinuses and nose, improved from yesterday Eye exam: PRESENT: conjunctiva pink Mouth exam: PRESENT: moist Respiratory exam: PRESENT: clear to auscultation miguel. ABSENT: rales, rhonchi, wheezes Cardiovascular exam: PRESENT: RRR. ABSENT: diastolic murmur, rubs, systolic murmur GI/Abdominal exam: PRESENT: normal bowel sounds, soft. ABSENT: distended, guarding, mass, organolmegaly, rebound, tenderness Rectal exam: PRESENT: deferred Neurological exam: PRESENT: alert, awake, oriented to person, oriented to place, oriented to time, oriented to situation Psychiatric exam: PRESENT: appropriate affect, normal mood Skin exam: PRESENT: dry, intact, warm Results Laboratory Results: 12/26/19 07:03 12/26/19 07:03 12/26/19 12/26/19 12/26/19 07:03 07:03 07:03 WBC 10.0 RBC 4.12 Hgb 11.8 L Hct 35.5 L MCV 86 MCH 28.7 MCHC 33.3 RDW 13.1 Plt Count 207 Seg Neutrophils % 63.2 Sodium 139.1 Potassium 3.8 Chloride 106 Carbon Dioxide 27 Anion Gap 6 BUN 14 Creatinine 0.55 Est GFR ( Amer) > 60 Glucose 135 H Calcium 8.8 Phosphorus 3.3 Magnesium 2.0 Total Bilirubin 0.6 AST 22 Alkaline Phosphatase 54 Total Protein 5.6 L Albumin 3.0 L TSH 1.18 12/25/19 15:02 Troponin I < 0.012 Assessment and Plan - Diagnosis (1) Postoperative delirium Is this a current diagnosis for this admission?: Yes Plan: Occurred on 12/24 postoperatively after having a septorhinoplasty and turbinate reduction for chronic allergic sinusitis and nasal polyps Given Narcan in OR with minimal improvement Progressively more alert and fully oriented at time of hospitalist exam Resolving Avoid sedating medications Resolved, reduce narcotics dose (2) NGOC (obstructive sleep apnea) Is this a current diagnosis for this admission?: Yes (3) Chronic allergic rhinitis Is this a current diagnosis for this admission?: Yes (4) Nasal polyps Is this a current diagnosis for this admission?: Yes - Time Time Spent with patient: 15-24 minutes Medications reviewed and adjusted accordingly: Yes Anticipated Discharge Disposition: Home, Self Care Anticipated Discharge Timeframe: within 24 hours
[2019-12-26] MEDS ORDERED: PHENOL/SODIUM PHENOLATE 100 SPRAY/177 ML BOTTLE ONE (17:46)
[2019-12-26] MEDS ORDERED: BENZOCAINE/MENTHOL SORE THROAT LOZENGE BUCCAL PRN (18:11)
[2019-12-26] MEDS: ACETAMINOPHEN 325 MG TABLET PO PRN (22:34)
[2019-12-27] MEDS: RINGERS SOLUTION,LACTATED 1,000 ML IV PRN (00:15)
[2019-12-27] MEDS: IBUPROFEN 800 MG TABLET PO SCH ×3 (00:15→11:54)
[2019-12-27] MEDS: HYDROCODONE/ACETAMINOPHEN 5-325 MG TABLET PO PRN ×2 (03:49→10:45)
[2019-12-27] MEDS: ENOXAPARIN SODIUM INJ 40 MG/0.4 ML DISP.SYRIN SUBCUT SCH (10:32)
[2019-12-27] MEDS: DOCUSATE SODIUM 100 MG CAPSULE PO SCH (10:32)
[2019-12-27 14:24] VITALS: BP 136/79
--- NOTE | 2019-12-27 15:18 | PDOC DISCHARGE SUMMARY ---
Impression - Admit/DC Date/PCP Admission Date/Primary Care Provider: 12/25/19 19:13 LEON MILES MD Discharge Date: 12/27/19 - Discharge Diagnosis (1) Postoperative delirium Is this a current diagnosis for this admission?: Yes (2) NGOC (obstructive sleep apnea) Is this a current diagnosis for this admission?: Yes (3) Chronic allergic rhinitis Is this a current diagnosis for this admission?: Yes (4) Nasal polyps Is this a current diagnosis for this admission?: Yes - Additional Information Resuscitation Status: Full Code Discharge Diet: As Tolerated, Regular Discharge Activity: Activity As Tolerated, Balance Activity w/Rest Referrals: ZE PUGH DO [ASSOCIATE] - 12/30/19 8:00 am (Please keep follow up appointment with Dr. Pugh on December 30, 2019 at 08:00am.) Prescriptions: Hydrocodone/Acetaminophen [[place] 5-325 mg Tablet] 2 tab PO Q6HP PRN #20 tablet PRN Reason: Home Medications: Multivitamin [Multivitamins] 1 each PO ASDIR PRN 12/22/19 Hydrocodone/Acetaminophen [[place] 5-325 mg Tablet] 2 tab PO Q6HP PRN #20 tablet 12/27/19 History of Present Illiness History of Present Illness: HERB AUGUSTE is a 59 year old female with past medical history significant for untreated NGOC, sinusitis who presents for surgery with ENT on her sinuses, experienced excessive somnolence postoperatively and hospitalist service was called to admit the patient for observation and monitoring. Patient denies any cardiac or pulmonary history. She was given Narcan in the OR with some mild improvement in her mentation. Upon my examination, patient was speaking more clearly and fully alert and oriented x4. She does seem to be in a fair amount of pain from her surgery and states she will need some pain management for this in the near future. As she has been given Narcan recently narcotics will be ineffective for some time and I have asked nursing to give her some Motrin as needed as well as Tylenol. Patient's only prior surgery was a years ago and she has never smoked, does not drink alcohol use illicit drugs. EKG done after surgery and was essentially normal and recent laboratory studies are unremarkable overall. Admitted to hospitalist service for further monitoring. Hospital Course Hospital Course: HERB AUGUSTE is a 59 year old female with past medical history significant for untreated NGOC, sinusitis who presents for surgery with ENT on her sinuses, experienced excessive somnolence postoperatively and hospitalist service was called to admit the patient for observation and monitoring. Patient denies any cardiac or pulmonary history. She was given Narcan in the OR with some mild im provement in her mentation. Upon my examination, patient was speaking more clearly and fully alert and oriented x4. She does seem to be in a fair amount of pain from her surgery and states she will need some pain management for this in the near future. As she has been given Narcan recently narcotics will be ineffective for some time and I have asked nursing to give her some Motrin as needed as well as Tylenol. Patient's only prior surgery was a years ago and she has never smoked, does not drink alcohol use illicit drugs. EKG done after surgery and was essentially normal and recent laboratory studies are unremarkable overall. Admitted to hospitalist service for further monitoring. 12/26/2019 Patient seems to be doing better today in terms of her mentation and alertness however she states her pain is intermittently poorly controlled. She had some [place] earlier today and stated it made her chest heavy and made her sleepy. She is specifically requesting morphine which I stated would only make these symptoms worse. We will keep the [place] and just reduce it to 1 tablet instead of 2. Labs and vitals are stable and patient can likely be discharged tomorrow. She states she is getting dizzy intermittently when she walks likely due to equilibrium being off from her sinus surgery and edema. Discussed case with nursing today. Chloraseptic Morrison added On 12/26 patient back to baseline mentation and states her pain is well controlled on a single dose of [place] every 6 hours as needed. She was given 20 tablets of this with no refills. ENT did not visit with patient during admission although her postop course seems to have gone quite well. I encouraged the patient to follow-up with ENT within 1 week of discharge. (1) Postoperative delirium Is this a current diagnosis for this admission?: Yes Plan: Occurred on 12/24 postoperatively after having a septorhinoplasty and turbinate reduction for chronic allergic sinusitis and nasal polyps Given Narcan in OR with minimal improvement Progressively more alert and fully oriented at time of hospitalist exam Resolving Avoid sedating medications Resolved, reduced narcotics dose. ENT did not follow the patient while admitted, but I strongly advised pt to follow up with them within 1 week of DC. (2) NGOC (obstructive sleep apnea) Is this a current diagnosis for this admission?: Yes (3) Chronic allergic rhinitis Is this a current diagnosis for this admission?: Yes (4) Nasal polyps Is this a current diagnosis for this admission?: Yes Physical Exam Vital Signs: Temp Pulse Resp BP Pulse Ox 98.0 F 65 18 136/79 H 100 12/27/19 14:08 12/27/19 14:08 12/27/19 14:08 12/27/19 14:08 12/27/19 14:08 Intake & Output 12/26/19 12/27/19 12/28/19 06:59 06:59 06:59 Intake Total 2380 2600 Output Total 2550 3200 Balance -170 -600 Weight 78.6 kg 78.6 kg Exam: General appearance: PRESENT: no acute distress, well-developed, well-nourished, states she feels well would like to go home Head exam: PRESENT: other - Diffuse edema and mild erythema of skin overlying maxillary sinuses and nose, improved from yesterday Eye exam: PRESENT: conjunctiva pink Mouth exam: PRESENT: moist Respiratory exam: PRESENT: clear to auscultation miguel. ABSENT: rales, rhonchi, wheezes Cardiovascular exam: PRESENT: RRR. ABSENT: diastolic murmur, rubs, systolic murmur GI/Abdominal exam: PRESENT: normal bowel sounds, soft. ABSENT: distended, guarding, mass, organolmegaly, rebound, tenderness Rectal exam: PRESENT: deferred Neurological exam: PRESENT: alert, awake, oriented to person, oriented to place, oriented to time, oriented to situation Psychiatric exam: PRESENT: appropriate affect, normal mood Skin exam: PRESENT: dry, intact, warm Results Laboratory Results: WBC 10.0 10^3/uL (4.0-10.5) 12/26/19 07:03 RBC 4.12 10^6/uL (3.72-5.28) 12/26/19 07:03 Hgb 11.8 g/dL (12.0-15.5) L 12/26/19 07:03 Hct 35.5 % (36.0-47.0) L 12/26/19 07:03 MCV 86 fl (80-97) 12/26/19 07:03 MCH 28.7 pg (27.0-33.4) 12/26/19 07:03 MCHC 33.3 g/dL (32.0-36.0) 12/26/19 07:03 RDW 13.1 % (11.5-14.0) 12/26/19 07:03 Plt Count 207 10^3/uL (150-450) 12/26/19 07:03 Lymph % (Auto) 30.7 % (13-45) 12/26/19 07:03 [place] % (Auto) 5.3 % (3-13) 12/26/19 07:03 Eos % (Auto) 0.3 % (0-6) 12/26/19 07:03 Baso % (Auto) 0.5 % (0-2) 12/26/19 07:03 Absolute Neuts (auto) 6.3 10^3/uL (1.7-8.2) 12/26/19 07:03 Absolute Lymphs (auto) 3.1 10^3/uL (0.5-4.7) 12/26/19 07:03 Absolute Monos (auto) 0.5 10^3/uL (0.1-1.4) 12/26/19 07:03 Absolute Eos (auto) 0.0 10^3/uL (0.0-0.6) 12/26/19 07:03 Absolute Basos (auto) 0.0 10^3/uL (0.0-0.2) 12/26/19 07:03 Seg Neutrophils % 63.2 % (42-78) 12/26/19 07:03 Carbonic Acid 1.30 mmol/L (1.05-1.35) 12/25/19 14:55 HCO3/H2CO3 Ratio 19:1 12/25/19 14:55 ABG pH 7.38 (7.35-7.45) 12/25/19 14:55 ABG pCO2 43.2 mmHg (35-45) 12/25/19 14:55 ABG pO2 73.0 mmHg (80-100) L 12/25/19 14:55 ABG HCO3 25.0 mmol/L (20-24) H 12/25/19 14:55 ABG Total CO2 26.3 mmol/L (21-25) H 12/25/19 14:55 ABG O2 Saturation 94.4 % (94-98) 12/25/19 14:55 ABG Base Excess -0.3 mmol/L 12/25/19 14:55 FiO2 32% 12/25/19 14:55 Sodium 139.1 mmol/L (137-145) 12/26/19 07:03 Potassium 3.8 mmol/L (3.6-5.0) 12/26/19 07:03 Chloride 106 mmol/L (98-107) 12/26/19 07:03 Carbon Dioxide 27 mmol/L (22-30) 12/26/19 07:03 Anion Gap 6 (5-19) 12/26/19 07:03 BUN 14 mg/dL (7-20) 12/26/19 07:03 Creatinine 0.55 mg/dL (0.52-1.25) 12/26/19 07:03 Est GFR ( Amer) > 60 (>60) 12/26/19 07:03 Est GFR (MDRD) Non-Af > 60 (>60) 12/26/19 07:03 Glucose 135 mg/dL (75-110) H 12/26/19 07:03 POC Glucose 202 mg/dL (70-110) H 12/25/19 13:53 Calcium 8.8 mg/dL (8.4-10.2) 12/26/19 07:03 Phosphorus 3.3 mg/dL (2.5-4.5) 12/26/19 07:03 Magnesium 2.0 mg/dL (1.6-2.3) 12/26/19 07:03 Total Bilirubin 0.6 mg/dL (0.2-1.3) 12/26/19 07:03 Direct Bilirubin 0.1 mg/dL (0.0-0.4) 12/26/19 07:03 Neonat Total Bilirubin Not Reportable 12/26/19 07:03 Neonat Direct Bilirubin Not Reportable 12/26/19 07:03 Neonat Indirect Bili Not Reportable 12/26/19 07:03 AST 22 U/L (14-36) 12/26/19 07:03 ALT 23 U/L (<35) 12/26/19 07:03 Alkaline Phosphatase 54 U/L (38-126) 12/26/19 07:03 Troponin I < 0.012 ng/mL 12/25/19 15:02 Total Protein 5.6 g/dL (6.3-8.2) L 12/26/19 07:03 Albumin 3.0 g/dL (3.5-5.0) L 12/26/19 07:03 TSH 1.18 uIU/mL (0.47-4.68) 12/26/19 07:03 COVID-19 Source NASOPHARYNGEAL 12/22/19 10:20 COVID-19 (NIR) NOT DETECTED 12/22/19 10:20 12/25/19 15:02 Troponin I < 0.012 Plan Plan of Treatment: Follow-up with PCP Follow-up with ENT Time Spent: Greater than 30 Minutes Stroke Is this a Stroke Patient?: No Acute Heart Failure Is this a Heart Failure Patient?: No
--- NOTE | 2020-01-06 13:13 | Operative Report ---
[facility]ative Report-[facility] Oper[facility] Report: DATE OF OPERATION: December 25, 2019 PREOPERATIVE DIAGNOSES: 1. Acute recurrent sinusitis/ARS 2. Nasal septal deviation, Acquired 3. Bilateral inferior turbinate hypertrophy 4. Nasal Deformities, Acquired 5. Chronic Nasal Dyspnea 6. Chronic rhinosinusitis/CRS 7. Chronic recurrent nasal polyposis/polyp disease 8. History of previous sinus and nasal surgery POSTOPERATIVE DIAGNOSES: 1. Acute recurrent sinusitis/ARS 2. Nasal septal deviation, Acquired 3. Bilateral inferior turbinate hypertrophy 4. Nasal Deformities, Acquired 5. Chronic Nasal Dyspnea 6. Chronic rhinosinusitis/CRS 7. Chronic recurrent nasal polyposis/polyp disease 8. History of previous sinus and nasal surgery 9. Intraoperatively/IOP identified dense polypoid/polyp tissue in the area of the lateral ethmoid sinuses, frontal sinuses, sphenoid sinuses, and right greater than left maxillary sinuses, and right maxillary sinus/right middle turbinate dense scar cicatrix, and within the bilateral nasal passages to a lesser degree PROCEDURES: 1. Revision image guidance/IG functional endoscopic sinus surgery/FESS as follows: 2. Bilateral revision total/anterior and posterior ethmoidectomies with polyp tissue removal bilateral via transnasal rigid surgical endoscopy 3. Bilateral revision frontal sinus sinusotomy with image guidance balloon guidance followed by formal frontal sinus sinusotomy with bilateral polyp tissue removal via transnasal rigid surgical endoscopy 4. Bilateral sphenoid sinus sphenoidotomy with bilateral polyp tissue removal and irrigation via transnasal rigid surgical endoscopy 5. Revision right maxillary antrostomy with polyp tissue removal via transnasal rigid surgical endoscopy 6. Revision septoplasty 7. Revision bilateral intramural inferior turbinate reductions using submucus resection techniques 8. Right middle turbinate surgical reduction and micro-debridement resection techniques 9. Bilateral nasal passage polyp removal 10. Placement of 4 Propel Contour steroid eluding stents in the areas of the bilateral frontal sinus and bilateral sphenoid sinus surgical openings. 11. Placement of 2 Sinuva steroid eluding stents in the area of the bilateral total ethmoidectomy areas SURGEON: Dr. Wm Marinelli Anesthesia Staff: CHARLA Portillo ANESTHESIA: General endotracheal tube anesthesia/GETA DRAINS: None SPONGE COUNT: Verified NEEDLE COUNT: Verified SPECIMEN/MATERIALS FORWARD TO THE LAB: Numerous bilateral sinonasal polyp tissue specimens removed and sent for permanent pathology evaluation. ESTIMATED BLOOD LOSS: 100 mL TOTAL IV FLUIDS: URINE OUTPUT: COMPLICATIONS: None FINDINGS: 1. Bilateral anterior and posterior ethmoidectomy changes with polyp tissue throughout and incomplete primary ethmoidectomy noted on both sides. 2. Right maxillary antrostomy obstructed with polyp tissue and extensive scar cicatrix. The left maxillary antrostomy appears reasonably patent, but with ove rlying polyp tissue obstruction. 3. Bilateral frontal sinus recess areas/ethmoid areas were completely obstructed with dense polyp tissue. 4. Right frontal sinus with extensive thick mucus/mucin and polypoid tissue suctioned. 5. Bilateral sphenoid sinus areas were completely obstructed with dense polyp tissue. 6. Nasal septal deviations with prominent nasal septal bony deflection to the left with thickened overlying mucosa. 7. Right middle turbinate hypertrophy/prominence, and there was only a remnant of the left middle turbinate that could be identified. 8. Bilateral nasal passage polyps/polypoid changes to a lesser degree. 9. Bilateral inferior turbinate hypertrophy. INDICATIONS: This is a 59-year-old female patient who has been seen and evaluated and followed in the [place] otolaryngology office. The patient was referred for and they complained of a history of a longstanding history of significant nasal and sinus difficulty over the years with longstanding history of sinus and nasal polyp disease, chronic nasal dyspnea, chronic rhinosinusitis symptoms, and history of previous sinus and nasal surgery for nasal dyspnea, chronic nasal congestion, and sinus and nasal polyp disease. The patient had also been originally scheduled for surgery during the past year, however there was a long delay in her ability to undergo the previously discussed revision sinus and nasal surgery due to COVID 19. It was extensively discussed with the patient to proceed with revision sinus and nasal surgery as noted above all of which he voiced an understanding of and was in agreement with. The procedures, and all of the risks and complications were all discussed in detail with the patient. she voiced an understanding, agreed to proceed, and consent was obtained. DESCRIPTION OF OPERATIVE PROCEDURE: The patient was taken to the main operating room and placed on the operating room table in the supine position. Appropriate monitors were placed. Using mask and IV access general anesthesia was induced. The patient was then transorally intubated without difficulty. The table was next positioned for nasal surgery. The patient underwent a nasal examination and local anesthetic with epinephrine was administered to establish a nasal block. The patient next had two Afrin soaked neuropatties placed into each nasal passage. The patient was then prepped and draped in the usual fashion for nasal surgery. The Fusion image guidance system was set up and tested appropriately before beginning the case. The neuropatties were removed and the patient underwent a hemitransfixion incision on the left. There was elevation of the mucoperichondrial and mucoperiosteal flaps with difficulty as the patient had undergone previous nasal/septal surgery and there were scar changes and mucosal changes/postsurgical changes. The bony cartilaginous junction was identified and the bony septal deflection to the left was removed. During the process there was a mucosal rent in the area of the mid/posterior septal mucosal flaps. There was a greater than 1.5 X 1.5 cm cartilaginous L-Strut preserved. Attention was now turned to performing bilateral inferior turbinate reductions. The turbinate bipolar wand was used to make 2 - 3 intramural passes in each inferior turbinate. At this point the turbinate microdebrider system at a setting of 1500 RPM was used to perform bilateral inferior turbinate submucus resections. This was followed by use of the Aida elevator to outfracture each inferior turbinate. At this point the image guidance/IG functional endoscopic sinus surgery/FESS portion of the surgery was addressed in the following manner. Bilateral transnasal rigid surgical endoscopy and sinus surgical instrumentation to include a microdebrider system was utilized throughout this portion of the case. NOTE: Due to the extensive state of COVID-19 and the long delay in the patient getting to the operating room for the long awaited revision sinus nasal surgery there were intraoperative findings that were clearly identified as above and appropriately addressed as described. There were numerous polyp tissue biopsies taken bilateral in the area of the ethmoid sinuses anterior and posterior, maxillary sinuses, frontal sinuses, and sphenoid sinuses. The patient underwent revision bilateral total ethmoidectomies addressing ethmoid sinuses that had previously not been addressed anterior and posterior extensive polyp tissue was removed as well during the process. The image guidance frontal sinus balloon system was used as a guide due to the extensive and dense polyp tissue in the area of the ethmoid sinuses and frontal sinuses and this was followed by bilateral frontal sinusotomies with extensive removal of polypoid tissue and extensive irrigation and suctioning. There were bilateral sphenoid sinusotomies with removal of extensive dense polyp tissue with irrigation and extensive suctioning. Bilateral nasal passage/maxillary antrostomy area polyp tissue was suction debrided right greater than left and the right dense scar cicatrix was removed in the right maxillary antrostomy area and right middle turbinate reduction/anterior resection with with micro debridement reduction as well. There was extensive irrigation throughout the patient's sinonasal surgery with extensive suctioning and there was reasonable hemostasis at the end of the case. At this point the nose was thoroughly suctioned. At this point the mucosal flaps were reapproximated and the hemitransfixion incision was closed using Chromic suture. Chromic suture was also used to reapproximate the septal mucosal flap rents. There were 4 propel contour stents and 2 Sinuva steroid eluting stents placed as noted above. This was followed by placement of intranasal supporting material consisting of modified Merocel packs 1 in each nasal passage with Afrin and bacitracin ointment that were secured at the caudal aspect with 4-0 Prolene suture. The nose was then cleaned and dried. Next, the patient was returned to the anesthesia staff and was allowed to emerge from general anesthesia. The patient was extubated in the main operating room and was then transported to the postanesthesia recovery unit in stable condition. There were no complications.
== END 2019-12-27 15:20 | disposition home or self-care (01) ==
LOC: OROUT 05:41 → 2N 17:19 → MERGE 19:13 → 2N 19:13 → OROUT 19:13
PROVIDERS: ADMIT Internal Medicine; ATTEND Internal Medicine
DX: J33.8 Other polyp of sinus (principal); J32.8 Other chronic sinusitis; J34.3 Hypertrophy of nasal turbinates; J34.2 Deviated nasal septum; R06.09 Other forms of dyspnea; G97.82 Other postprocedural complications and disorders of nervous system; F05 Delirium due to known physiological condition; J01.81 Other acute recurrent sinusitis; Y83.8 Other surgical procedures as the cause of abnormal reaction of the patient, or of later complication, without mention of misadventure at the time of the procedure; G47.33 Obstructive sleep apnea (adult) (pediatric); J30.89 Other allergic rhinitis; H69.83 Other specified disorders of Eustachian tube, bilateral; E78.5 Hyperlipidemia, unspecified; R09.81 Nasal congestion; Z98.890 Other specified postprocedural states; Z03.818 Encounter for observation for suspected exposure to other biological agents ruled out; Z79.899 Other long term (current) drug therapy; Z82.49 Family history of ischemic heart disease and other diseases of the circulatory system
CPT/HCPCS: 30802; 31296; 31267; 31257; 31299; 36415 ×2; 82962; 82803; 83735; 84100; 84443; 85025; 80053 ×2; 84484; 88305 ×2; 93005; 93010; 36600; 00160; G0378 ×3; C1758; C1726; S1090; C9122; U0003; J3490 ×10; J2250; J0690 ×2; J1100; J3010; J2310; J2710; J1650 ×2; J1170; J2405; J7120 ×3; J2704; C9803; 160; 87635; C2625; G0379

== ENCOUNTER → 2020-02-17 | Outpatient (CLI) | payer BC ==
[2020-02-17 08:17] LABS: ABSOLUTE EOSINOPHILS # (AUTO) 0.1 10^3/uL (0.0-0.6); ABSOLUTE LYMPHOCYTES (AUTO) 2.4 10^3/uL (0.5-4.7); ABSOLUTE MONOCYTES (AUTO) 0.4 10^3/uL (0.1-1.4); ABSOLUTE NEUT (AUTO) 2.6 10^3/uL (1.7-8.2); BASOPHILS % (AUTO) 0.5 % (0-2); HEMATOCRIT 37.2 % (36.0-47.0); HEMOGLOBIN 12.1 g/dL (12.0-15.5); LYMPHOCYTES % (AUTO) 43.1 % (13-45); MEAN CORPUSCULAR HEMOGLOBIN 28.4 pg (27.0-33.4); MEAN CORPUSCULAR HGB CONC 32.5 g/dL (32.0-36.0); MEAN CORPUSCULAR VOLUME 87 fl (80-97); PLATELET COUNT 270 10^3/uL (150-450); RED BLOOD COUNT 4.26 10^6/uL (3.72-5.28); RED CELL DISTRIBUTION WIDTH 12.7 % (11.5-14.0); SEGMENTED NEUTROPHILS % (AUTO) 47.4 % (42-78); TOTAL CELLS COUNTED % (AUTO) 100 %; WHITE BLOOD COUNT 5.5 10^3/uL (4.0-10.5)
[2020-02-17 08:39] LABS: ANION GAP 8 (5-19); BLOOD UREA NITROGEN 15 mg/dL (7-20); CALCIUM 9.1 mg/dL (8.4-10.2); CARBON DIOXIDE 29 mmol/L (22-30); CHLORIDE 102 mmol/L (98-107); GLUCOSE 87 mg/dL (75-110); POTASSIUM 4.1 mmol/L (3.6-5.0)
== END ==
LOC: OD 07:16
PROVIDERS: ATTEND Family Medicine Geriatric Medicine
DX: R73.9 Hyperglycemia, unspecified (principal); E78.5 Hyperlipidemia, unspecified; E66.3 Overweight; Z79.899 Other long term (current) drug therapy
CPT/HCPCS: 36415; 80048; 82947; 82950; 83036; 85025